=== PATIENT | female | born 1935 | race Caucasian/White ===

== ENCOUNTER → 2017-03-03 | Outpatient (REF) | payer MEDICARE ==
[2017-03-03 11:49] LABS: MEAN CORPUSCULAR HEMOGLOBIN 31.1 pg (27.0-33.0); MEAN CORPUSCULAR HGB CONC 33.6 g/dl (32.0-36.5); MEAN CORPUSCULAR VOLUME 92.4 fl (80.0-96.0); RED CELL DISTRIBUTION WIDTH 12.8 % (11.5-14.5); WHITE BLOOD COUNT 7.5 K/mm3 (4.0-10.0)
[2017-03-03 12:08] LABS: ALBUMIN 4.2 GM/DL (3.2-5.2); ALBUMIN/GLOBULIN RATIO 1.31 (1.00-1.93); ALKALINE PHOSPHATASE 61 U/L (45-117); ALT/SGPT 21 U/L (12-78); ANION GAP 8 MEQ/L (8-16); AST/SGOT 21 U/L (15-37); BILIRUBIN,TOTAL 0.5 MG/DL (0.2-1.0); BLOOD UREA NITROGEN 12 MG/DL (7-18); CARBON DIOXIDE LEVEL 29 MEQ/L (21-32); CHLORIDE LEVEL 99 MEQ/L (98-107); GLOMERULAR FILTRATION RATE > 60.0 (>32); GLUCOSE, FASTING 97 MG/DL (83-110); POTASSIUM SERUM 3.8 MEQ/L (3.5-5.1); SODIUM LEVEL 136 MEQ/L (136-145); TOTAL PROTEIN 7.4 GM/DL (6.4-8.2)
== END ==
LOC: M SFHCPLAZ 08:52
PROVIDERS: ATTEND Physician Assistant
DX: I10 Essential (primary) hypertension (principal)

== ENCOUNTER 2017-06-21 08:34 | Emergency (ER) | payer MEDICARE ==
[~2017-06-21] VITALS: Ht 154.9 cm; Wt 60.0 kg
[2017-06-21] MEDS ORDERED: IBUP-1022 PO (09:16)
[2017-06-21] MEDS ORDERED: MULT1TAB10 PO (09:16)
[2017-06-21] MEDS ORDERED: CALC600T57 PO (09:16)
[2017-06-21] MEDS ORDERED: PRIL20CA9 PO (09:16)
[2017-06-21] MEDS ORDERED: OMEG100011 PO (09:16)
[2017-06-21] MEDS ORDERED: VENL37.52 PO (09:16)
[2017-06-21] MEDS ORDERED: INDA25TAB PO (09:16)
[2017-06-21] MEDS ORDERED: CEPH500T PO (09:16)
[2017-06-21] MEDS ORDERED: VITA100067 PO (09:16)
[2017-06-21] MEDS ORDERED: SYST1SOL OU (09:16)
[2017-06-21] MEDS ORDERED: VITATAB11 PO (09:16)
[2017-06-21] MEDS ORDERED: LOSA100T36 PO (09:16)
[2017-06-21] MEDS ORDERED: ZOCO20TA PO (09:16)
[2017-06-21 09:33] LABS: BASO # 0.2 K/mm3 (0.0-0.2); BASO % 0.9 % (0.0-1.0); EOS # 0.1 K/mm3 (0.0-0.50); EOS % 0.5 % (0.0-3.0); LARGE UNSTAINED CELL # 0.3 K/mm3 (0.0-0.4); LARGE UNSTAINED CELL % 1.5 % (0.0-4.0); LYMPH # 1.1 K/mm3 (1.5-4.5); LYMPH % 4.1 % (24.0-44.0); MEAN CORPUSCULAR HEMOGLOBIN 30.6 pg (27.0-33.0); MEAN CORPUSCULAR HGB CONC 34.1 g/dl (32.0-36.5); MEAN CORPUSCULAR VOLUME 89.7 fl (80.0-96.0); MONO # 4.5 K/mm3 (0.0-0.8); MONO % 22.9 % (0.0-5.0); NEUTROPHILS # 13.8 K/mm3 (1.8-7.7); NEUTROPHILS % 70.2 % (36.0-66.0); PLATELET COUNT, AUTOMATED 231 k/mm3 (150-450); WHITE BLOOD COUNT 19.7 K/mm3 (4.0-10.0)
[2017-06-21] MEDS ORDERED: NS 1,000 ML IV ONE (09:45)
[2017-06-21] MEDS ORDERED: ACETAMINOPHEN 325 MG TAB PO ONE (09:45)
--- NOTE | 2017-06-21 09:46 | REP ---
Chest two views HISTORY: Weakness Comparison: 12/08/2011 Increased density is present in the right lower lobe consistent with atelectasis or infiltrate. The left lung is clear. The heart is normal in size. The pulmonary vasculature is normal in appearance. Degenerative change is present in the thoracic spine. IMPRESSION: Right lower lobe atelectasis or infiltrate. Signed by Clarence Cabezas MD 06/21/2017 09:37 A
[2017-06-21 09:51] LABS: ALBUMIN 3.7 GM/DL (3.2-5.2); ALBUMIN/GLOBULIN RATIO 0.84 (1.00-1.93); ALKALINE PHOSPHATASE 71 U/L (45-117); ALT/SGPT 18 U/L (12-78); ANION GAP 11 MEQ/L (8-16); AST/SGOT 19 U/L (15-37); BILIRUBIN,DIRECT 0.2 MG/DL (0.0-0.2); BLOOD UREA NITROGEN 20 MG/DL (7-18); CALCIUM LEVEL 9.2 MG/DL (8.8-10.2); CARBON DIOXIDE LEVEL 26 MEQ/L (21-32); CHLORIDE LEVEL 94 MEQ/L (98-107); CREATININE FOR GFR 0.83 MG/DL (0.55-1.02); GLOMERULAR FILTRATION RATE > 60.0 (>32); GLUCOSE, FASTING 106 MG/DL (83-110); POTASSIUM SERUM 3.3 MEQ/L (3.5-5.1); SODIUM LEVEL 131 MEQ/L (136-145); TOTAL PROTEIN 8.1 GM/DL (6.4-8.2)
[2017-06-21] MEDS ORDERED: LevoFLOXacin IV 500 MG in APPROPRIATE DILUENT 1 EA IV ONE (10:00)
[2017-06-21] MEDS ORDERED: IPRATROPIUM 0.5MG/ALBUTEROL 2.5MG INH SOL UD 3ML (DUONEB)(J7620) NEB ONE (10:45)
[2017-06-21] MEDS ORDERED: ALBUTEROL 90 MCG/ACT 8GM HFA INHALER INH ONE (13:15)
--- NOTE | 2017-06-21 13:15 | ECGEPIP ---
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
[2017-06-21] MEDS ORDERED: LEVA1TAB2 PO (13:22)
[2017-06-21 14:01] VITALS: BP 113/55
== END 2017-06-21 14:04 | disposition home or self-care (01) ==
LOC: M ED 08:34
DX: J18.9 Pneumonia, unspecified organism (principal); R53.83 Other fatigue; R06.02 Shortness of breath; I10 Essential (primary) hypertension; E78.00 Pure hypercholesterolemia, unspecified; K21.9 Gastro-esophageal reflux disease without esophagitis; Z88.8 Allergy status to other drugs, medicaments and biological substances; Z79.899 Other long term (current) drug therapy
CPT/HCPCS: 71020; 80048; 80076; 81001; 83605; 84443; 85025; 87040; 87086; 87804; 93005; 93041; 94640; 94760; 96361; 96374; 99285; J1956; P9612

== ENCOUNTER → 2017-07-07 | Outpatient (CLI) | payer MEDICARE ==
[~2017-07-07] MED LIST: CALC600T57 PO; CEPH500T PO; IBUP-1022 PO; INDA25TAB PO; LEVA1TAB2 PO; LOSA100T36 PO; MULT1TAB10 PO; NORCOTAB PO; OMEG100011 PO; PRIL20CA9 PO; SYST1SOL OU; VENL37.52 PO; VITA100067 PO; VITATAB11 PO; ZOCO20TA PO
--- NOTE | 2017-07-07 15:02 | REP ---
Clinical: Lumbar pneumonia. Technique: Technique: PA and lateral. Comparison: 06/21/2017. Findings: Mediastinum and cardiac silhouette are within normal limits. Lung bynum demonstrate chronic changes and the previously identified right lower lobe infiltrate has resolved. No acute consolidation, effusion, or pneumothorax. Skeletal structures stable. Impression: Chronic stable changes. Previously noted right lower lobe infiltrate resolved. Signed by Kb Das MD 07/07/2017 02:54 P
== END ==
LOC: M ADAMS 14:25
PROVIDERS: ATTEND Family Medicine
DX: J18.1 Lobar pneumonia, unspecified organism (principal)

== ENCOUNTER → 2017-07-07 | Outpatient (REF) | payer MEDICARE ==
[2017-07-07 20:54] LABS: MEAN CORPUSCULAR HEMOGLOBIN 30.4 pg (27.0-33.0); MEAN CORPUSCULAR HGB CONC 33.2 g/dl (32.0-36.5); MEAN CORPUSCULAR VOLUME 91.6 fl (80.0-96.0); RED CELL DISTRIBUTION WIDTH 13.3 % (11.5-14.5)
[2017-07-07 20:57] LABS: ANION GAP 5 MEQ/L (8-16); BLOOD UREA NITROGEN 13 MG/DL (7-18); CALCIUM LEVEL 9.3 MG/DL (8.8-10.2); CARBON DIOXIDE LEVEL 32 MEQ/L (21-32); CHLORIDE LEVEL 96 MEQ/L (98-107); CREATININE FOR GFR 0.68 MG/DL (0.55-1.02); GLOMERULAR FILTRATION RATE > 60.0 (>32); GLUCOSE, FASTING 100 MG/DL (83-110); SODIUM LEVEL 133 MEQ/L (136-145)
== END ==
LOC: M SFHCADAM 14:22
PROVIDERS: ATTEND Family Medicine
DX: J18.1 Lobar pneumonia, unspecified organism (principal)

== ENCOUNTER 2017-07-26 13:23 | Emergency (ER) | payer MEDICARE ==
[~2017-07-26] VITALS: Ht 154.9 cm; Wt 60.9 kg
[~2017-07-26 13:23] MED LIST changes: -NORCOTAB PO
--- NOTE | 2017-07-26 14:08 | REP ---
LEFT WRIST: Four views of the left wrist are performed. There is a nondisplaced fracture of the distal radius with mild dorsal angulation. There is a fracture of the ulnar styloid process. There is moderate diffuse narrowing at the radiocarpal joint with mild chondrocalcinosis. There are degenerative changes in the lateral carpometacarpal region. IMPRESSION: Nondisplaced fractures, distal radius and ulna, with mild dorsal angulation at the radial fracture site. Signed by Drake Oliva MD 07/26/2017 05:07 P
[2017-07-26] MEDS ORDERED: NORCOTAB PO (15:25)
[2017-07-26 15:47] VITALS: BP 173/74
== END 2017-07-26 15:48 | disposition home or self-care (01) ==
LOC: M ED 14:25
DX: S52.502A Unspecified fracture of the lower end of left radius, initial encounter for closed fracture (principal); S52.602A Unspecified fracture of lower end of left ulna, initial encounter for closed fracture; W19.XXXA Unspecified fall, initial encounter; Y92.019 Unspecified place in single-family (private) house as the place of occurrence of the external cause; Y93.89 Activity, other specified; Y99.8 Other external cause status; I10 Essential (primary) hypertension; Z79.899 Other long term (current) drug therapy

== ENCOUNTER → 2017-09-11 | Outpatient (CLI) | payer MEDICARE ==
[~2017-09-11] MED LIST changes: +NORCOTAB PO
--- NOTE | 2017-09-11 15:23 | REPMRS ---
Patient History The patient states she has not had a clinical breast exam in over a year. Patient is postmenopausal and is of Ashkenazi [place] descent. Family history of breast cancer in 3 maternal aunts at age 50 or over and breast cancer in maternal cousin at age 50 or over. Cyst aspiration of the left breast, July 2016. 2 benign cyst aspirations of the left breast. Digital Woman Screen Mammo: September 11, 2017 - Exam #: [id number] Bilateral CC and MLO view(s) were taken. Technologist: Timothy Snyderologist Prior study comparison: September 09, 2016, digital woman screen mammo performed at [facility]. September 08, 2015, digital woman screen mammo performed at [facility]. FINDINGS: There are scattered fibroglandular densities. There is a fairly symmetric fibroglandular pattern in both breasts. There has been no interval development of masses, areas of architectural distortion or clusters of microcalcifications typical of malignancy. ASSESSMENT: BI-RADS/ACR category 2 mammogram. Benign finding(s). Recommendation Routine screening mammogram of both breasts in 1 year (for women over age 40). This mammogram was interpreted with the aid of an FDA-approved computer-aided dectection system. Electronically Signed By: Drake Oliva MD 09/11/17 1990
== END ==
LOC: M WHC 14:08
PROVIDERS: ATTEND Physician Assistant
DX: Z12.31 Encounter for screening mammogram for malignant neoplasm of breast (principal)

== ENCOUNTER → 2018-05-01 | Outpatient (CLI) | payer MEDICARE | LOC: M RAD 13:15 | DX: N60.02 Solitary cyst of left breast (principal) | CPT/HCPCS: 76642 ==

== ENCOUNTER → 2018-08-15 | Outpatient (REF) | payer MEDICARE ==
[2018-08-15 12:23] LABS: HEMATOCRIT 38.5 % (36.0-47.0); HEMOGLOBIN 12.8 g/dl (12.0-15.5); MEAN CORPUSCULAR HEMOGLOBIN 29.7 pg (27.0-33.0); MEAN CORPUSCULAR HGB CONC 33.2 g/dl (32.0-36.5); MEAN CORPUSCULAR VOLUME 89.3 fl (80.0-96.0); PLATELET COUNT, AUTOMATED 236 10^3/uL (150-450); RED BLOOD COUNT 4.31 10^6/uL (4.00-5.40); RED CELL DISTRIBUTION WIDTH 13.2 % (11.5-14.5); WHITE BLOOD COUNT 7.6 10^3/uL (4.0-10.0)
[2018-08-15 12:53] LABS: ALBUMIN 4.3 GM/DL (3.2-5.2); ALBUMIN/GLOBULIN RATIO 1.34 (1.00-1.93); ALKALINE PHOSPHATASE 61 U/L (45-117); ALT/SGPT 20 U/L (12-78); ANION GAP 11 MEQ/L (8-16); AST/SGOT 21 U/L (7-37); BILIRUBIN,TOTAL 0.6 MG/DL (0.2-1.0); BLOOD UREA NITROGEN 14 MG/DL (7-18); CALCIUM LEVEL 9.1 MG/DL (8.8-10.2); CARBON DIOXIDE LEVEL 27 MEQ/L (21-32); CHLORIDE LEVEL 98 MEQ/L (98-107); CHOLESTEROL LEVEL 167 MG/DL (<200); CHOLESTEROL RISK RATIO 2.226 (<5); CREATININE FOR GFR 0.71 MG/DL (0.55-1.30); GLOMERULAR FILTRATION RATE > 60.0 (>32); GLUCOSE, FASTING 87 MG/DL (70-100); HDL CHOLESTEROL 75 MG/DL (>40); LDL CHOLESTEROL 76 MG/DL (<100); NON-HDL-C 92 MG/DL; POTASSIUM SERUM 3.9 MEQ/L (3.5-5.1); SODIUM LEVEL 136 MEQ/L (136-145); TOTAL PROTEIN 7.5 GM/DL (6.4-8.2); TRIGLYCERIDES LEVEL 78 MG/DL (<150)
== END ==
LOC: M SFHCPLAZ 10:09
DX: F32.9 Major depressive disorder, single episode, unspecified (principal); I11.9 Hypertensive heart disease without heart failure
CPT/HCPCS: 80053

== ENCOUNTER → 2018-09-26 | Outpatient (CLI) | payer MEDICARE | LOC: M WHC 08:48 | DX: Z12.31 Encounter for screening mammogram for malignant neoplasm of breast (principal); Z78.0 Asymptomatic menopausal state | CPT/HCPCS: 77067 ==

== ENCOUNTER 2018-11-25 17:27 | Inpatient (IN) | payer MEDICARE ==
[~2018-11-25] VITALS: Ht 152.4 cm; Wt 59.0 kg
[~2018-11-25 17:27] MED LIST changes: -AUGM875T28 PO; -OMEP20CA3 PO
[2018-11-25] MEDS ORDERED: NS 1,000 ML IV ONE (18:15)
[2018-11-25 18:21] LABS: HEMATOCRIT 34.2 % (36.0-47.0); HEMOGLOBIN 11.5 g/dl (12.0-15.5); MEAN CORPUSCULAR HEMOGLOBIN 30.1 pg (27.0-33.0); MEAN CORPUSCULAR HGB CONC 33.6 g/dl (32.0-36.5); MEAN CORPUSCULAR VOLUME 89.5 fl (80.0-96.0); PLATELET COUNT, AUTOMATED 207 10^3/uL (150-450); RED BLOOD COUNT 3.82 10^6/uL (4.00-5.40); WHITE BLOOD COUNT 23.2 10^3/uL (4.0-10.0)
[2018-11-25] MEDS ORDERED: POTASSIUM CHLORIDE 10 MEQ SR TABLET PO ONE (18:45)
--- NOTE | 2018-11-25 18:58 | REP ---
Clinical: Cough and leukocytosis. Technique: PA and lateral. Comparison: 07/07/2017. Findings: The mediastinum and cardiac silhouette are stable. Lung bynum demonstrate chronic interstitial changes without acute consolidation, effusion, or pneumothorax. Skeletal structures demonstrate age-related osteopenia and degenerative changes. Impression: Chronic interstitial changes. No obvious acute cardiopulmonary process. Electronically Signed by Kb Das MD 11/25/2018 06:50 P
[2018-11-25 19:02] LABS: BASOPHILS 1 % (0-4); LYMPHOCYTES 5 % (16-52); MONOCYTES 36 % (0-8); NEUTROPHILS 58 % (35-75); PLATELET ESTIMATE NORMAL (NORMAL)
[2018-11-25] MEDS ORDERED: ISOVUE-370 76% 100ML VIAL (Q9967) As Ordered ONE (19:04)
--- NOTE | 2018-11-25 19:48 | REP ---
Clinical: Cough and leukocytosis. Suspect endocarditis Technique: Axial contrast enhanced images from the thoracic inlet to the upper abdomen using 100 ml Isovue 370 intravenous contrast material with coronal and sagittal re-formations. Findings: Satisfactory enhancement of the pulmonary vasculature is achieved and no filling defects are identified to suggest pulmonary embolus. Thoracic aorta is normal caliber without aneurysm or dissection. Heart and pericardium are normal. There is a posterior right lower lobe mass / consolidation measuring 4.4 x 4.2 x 3.2 cm highly suspicious for malignancy with surrounding areas of ground-glass opacity. Trace bibasilar atelectasis also noted. No pleural effusion. No pneumothorax. Tracheobronchial tree appears patent. Mild right hilar and moderate subcarinal adenopathy is appreciated. Surrounding musculoskeletal structures are intact without focal osseous abnormality. Impression: 1. No evidence for pulmonary embolus. 2. A 4.4 x 4.2 x 3.2 cm posterior right lower lobe mass / consolidation highly concerning for malignancy requires follow-up and consultation. 3. Normal appearance of the heart and pericardium. Mild atherosclerotic changes to the thoracic aorta without aneurysm or dissection. Electronically Signed by Kb Das MD 11/25/2018 07:40 P
--- NOTE | 2018-11-25 19:56 | REP ---
Clinical: Leukocytosis and fatigue Technique: Axial contrast enhanced images from the lung bases to the pubic symphysis using 100 ml Isovue 370 intravenous contrast material with coronal and sagittal re-formations. Comparison: 05/09/2013. Findings: Posterior right lower lobe lung mass / consolidation with surrounding ground-glass opacity along with trace bibasilar atelectasis. Liver demonstrates heterogeneous parenchymal enhancement which may reflect underlying hepatocellular disease. Innumerable hepatic hypodensities which were identified on 2013 but have increased in size including medial left lower lobe hypodensity now measuring 3.7 cm and previously measuring 2.0 cm likely representing chronic cysts. Spleen, pancreas, gallbladder, bilateral adrenal glands and kidneys are normal. The enteric system is without obstruction or obvious acute inflammatory process. Moderate fecal stasis noted throughout the colon along with diffuse colonic and predominately sigmoid diverticulosis. Pelvis demonstrates normal bladder and retroflexed uterus with a 1.3 cm calcified fibroid unchanged from 2013. No ascites. No obvious intraperitoneal or retroperitoneal adenopathy. Abdominal aorta and vasculature without aneurysm or dissection. Musculoskeletal structures demonstrate age-related degenerative changes and chronic scoliosis. Impression: 1. Right lower lobe posterior lung mass / consolidation with surrounding ground-glass opacity requires followup and constipation. 2. Heterogeneous hepatic parenchymal enhancement may reflect underlying hepatocellular disease. Scattered hepatic hypodensities which are similar to prior examination but increased in size suggest cysts although subtle further pathology cannot be excluded based on current examination. 3. Colonic and predominant sigmoid diverticulosis without obvious acute diverticulitis. Moderate fecal stasis. 4. No ascites, obvious adenopathy or focal mass lesion. Electronically Signed by Kb Das MD 11/25/2018 07:48 P
[2018-11-25] MEDS ORDERED: cefTRIAXone SOD 1 GM in D5W MINI-BAG PLUS 50 ML IV ONE (21:15)
[2018-11-25] MEDS ORDERED: OMEP20CA3 PO (21:29)
[2018-11-25] MEDS: HEPARIN SOD (PORCINE) 5000 UNITS/ML VIAL SQ SCH (22:17)
[2018-11-25] MEDS: SIMVASTATIN 20 MG TAB PO SCH (22:17)
[2018-11-25] MEDS: LOSARTAN 50 MG TAB PO SCH (22:17)
--- NOTE | 2018-11-25 22:27 | HPEPDOC ---
[facility] Medical History & Physical Date of Admission Nov 25, 2018 Primary Care Physician: Richard Felipe MD Other Provider Dictating/admitting: Wade Baeza M.D. Attending Physician: Otto Reyes MD History and Physical CHIEF COMPLAINT: Cough x 3 days HISTORY OF PRESENT ILLNESS: Patient is an 83-year-old woman with hypertension, hyperlipidemia, migraine, arthritis, depression. She reports being in her usual state of health until about 3 days ago when she started having cough. She says is nonproductive, not associated with shortness of breath. No hemoptysis. No as sociated chest pain, no palpitations, no nausea no vomiting, no fever or chills. No weight loss, no night sweats. No recent sick contacts. No change in her bowel or urinary habits. Patient sought medical attention at an urgent care due to unresolving symptoms, she was asked to seek further evaluation due to markedly elevated white count. Patient was evaluated in our ER with CT of the chest. Chest x-ray, CT abdomen and pelvis, all were consistent with pneumonia and likely posterior lower lobe lung mass. Medicine called to admit patient. PAST MEDICAL HISTORY: Per HPI PAST SURGICAL HISTORY: 1. Tonsillectomy. 2. Colonoscopy 2. 3. Breast cyst aspiration. 4. Right knee arthroplasty. SOCIAL HISTORY: Denies smoking, alcohol or illicit drug use. FAMILY HISTORY: Father: from occupational lung disease at age 32 Mother: age 91, was diagnosed with CHF, rheumatoid arthritis, liver disease. Siblings: One brother, 2 sisters. One brother has liver disease. Maternal cousin with breast cancer. Children: 2 sons ALLERGIES: Please see below. REVIEW OF SYSTEMS: No hemoptysis. Occasional shortness of breath and cough. No chest pain or palpitations. No fever, no chills, no nausea no vomiting, no weight loss, no night sweats. No recent sick contacts. No change in bowel or urinary habits. All other systems reviewed, negative. 12 point system review was done. HOME MEDICATIONS: Please see below. PHYSICAL EXAMINATION: VITAL SIGNS: Temperature 97.1, pulse 89, respiratory rate 17, blood pressure 116/67, pulse oximetry 97% on room air. GENERAL APPEARANCE: Elderly woman, lying calmly in bed, not in any apparent distress. She is not pale, anicteric and afebrile HEENT: Atraumatic. Neck: Supple. LUNGS: Clear to auscultation bilaterally. CARDIOVASCULAR: S1 and 2 heard, no murmurs, rubs or gallops. ABDOMEN: Obese, soft, not tender, not distended. Bowel sounds normoactive. MUSCULOSKELETAL: Apparently within normal limits. EXTREMITIES: No pedal edema, 2+ bilateral pedal pulses noted. NEUROLOGICAL: Awake, alert, oriented 3. PSYCHIATRIC: Normal affect LABORATORY DATA: See below. IMAGING: -Chest x-ray PA/lateral: Chronic interstitial changes. No obvious acute cardiopulmonary process. -CT angiogram chest: No evidence of pulmonary embolus. A 4.4 x 4.2 x 3.2 cm posterior right lower lobe mass/consolidation, highly concerning for malignancy. Normal appearance of the heart and pericardium. Mild atherosclerotic changes to the thoracic aorta without aneurysms or dissection. -CT abdomen/pelvis with IV contrast: Right lower lobe posterior lung mass/consolidation with surrounding groundglass opacity. Heterogeneous hepatic parenchymal enhancement may reflect underlying cellular disease. Scattered hepatic hypodensities which are similar to prior examination with increased in size suggest cysts although subtle further pathology cannot be excluded based on current exam. Colonic and predominant sigmoid diverticulosis without obvious acute diverticulitis, moderate fecal stasis. No ascites, obvious adenopathy or focal mass lesion. EKG: Normal sinus rhythm, no acute ST or T-wave changes seen. MICROBIOLOGY: Please see below. ASSESSMENT: 83-year-old woman with above-mentioned comorbid history comes in with cough unresolving exam generally unremarkable. Chest clear to auscultation. Labs with elevated white count, monocyte predominant CT and chest x-rays suggestive of lung mass and pneumonia. DIAGNOSES: 1. Pneumonia (r/o post obstructive pneumonia. On account of mass seen on CTA chest and chest x-rays) 2. Lung mass. 3. Leukocytosis . PLAN: 1. I will admit patient to the medical floors under care of Dr. Reyes 2. Patient will continue IV antibiotics for pneumonia with ceftriaxone and Zithromax. Please follow blood cultures temperature trends CBC in the morning. 3. Primary consult placed to Dr. Nam. Patient may also need hematology oncology services likely with this admission or to follow as outpatient. 4. Leukocytosis, likely leukemoid in the setting of malignancy. 5. Lung mass may require biopsy. With this admission. Follow with Dr. Nam. 6. I will resume outpatient medications as soon as reconciled. 7. DVT prophylaxis with subcutaneous heparin 5000 international units every 12 hourly. 8. GI prophylaxis. Pantoprazole. 9. Further management to be per patient's clinical course. Vital Signs Vital Signs Date Time Temp Pulse Resp B/P (MAP) Pulse Ox O2 Delivery O2 Flow Rate FiO2 11/25/18 17:51 11/25/18 17:28 97.1 89 17 97 Laboratory Data Labs 24H Laboratory Tests 2 11/25/18 18:13: White Blood Count 23.2H, Red Blood Count 3.82L, Hemoglobin 11.5L, Hematocrit 34.2L, Mean Corpuscular Volume 89.5, Mean Corpuscular Hemoglobin 30.1, Mean Corpuscular Hemoglobin Concent 33.6, Red Cell Distribution Width 13.4, Platelet Count 207, Monocytes # (Auto) , Nucleated Red Blood Cells % (auto) 0.0, Neutrophils 58, Lymphocytes (Manual) 5L, Monocytes (Manual) 36H, Basophils (Manual) 1, Platelet Estimate NORMAL, C-Reactive Protein, Quantitative 17.00H 11/25/18 19:02: Differential Slide Review Report, Peripheral Blood Smear Path Consult PERIPHERAL SMEAR, Lactic Acid Level 1.0 11/25/18 20:27: Urine Color AIRAM, Urine Appearance HAZY, Urine pH 6.0, Urine Specific [place] 1.031, Urine Protein 1+H, Urine Glucose (UA) NEGATIVE, Urine Ketones NEGATIVE, Urine Blood NEGATIVE, Urine Nitrite NEGATIVE, Urine Bilirubin NEGATIVE, Urine Urobilinogen 0.2, Urine Leukocyte Esterase TRACEH, Urine WBC (Auto) 3, Urine RBC (Auto) 6H, Urine Hyaline Casts (Auto) 0, Urine Bacteria (Auto) NEGATIVE, Urine Squamous Epithelial Cells 1, Urine Mucus (Auto) SMALL, Urine Sperm (Auto) CBC/BMP Laboratory Tests 11/25/18 18:13 Red Blood Count 3.82 L, Mean Corpuscular Volume 89.5, Mean Corpuscular Hemoglobin 30.1, Mean Corpuscular Hemoglobin Concent 33.6, Red Cell Distribution Width 13.4, Monocytes # (Auto) Microbiology Microbiology 11/25/18 Blood Culture, Received Pending 11/25/18 Blood Culture, Received Pending 11/25/18 Blood Culture, Received Pending 11/25/18 Respiratory Virus Panel (PCR) (GABBY) - Final, Complete 11/25/18 Urine Culture, Received Pending Home Medications Scheduled B1/B2/B3/B5/B6 (Vitamin B Complex) 1 Tab Tab, 1 TAB PO DAILY Indapamide (Indapamide) 2.5 Mg Tab, 2.5 MG PO DAILY Losartan Potassium (Losartan Potassium) 100 Mg Tab, 100 MG PO QHS Multivitamins (Multivitamin Adults) 1 Tab Tab, 1 TAB PO DAILY Omeprazole (Omeprazole) 20 Mg Cap, 20 MG PO DAILY Simvastatin (Zocor) 20 Mg Tab, 20 MG PO QHS Venlafaxine HCl (Venlafaxine HCl ER) 37.5 Mg Cap, 37.5 MG PO DAILY Vitamin D (Vitamin D) 1,000 Unit Cap, 1,000 UNIT PO DAILY Scheduled PRN Ibuprofen (Ibuprofen) 600 Mg Tab, 600 MG PO Q6H PRN for PAIN Polyethylene Glycol (Systane 0.4-0.3 %) 15 Ml Divina, 1 DROP OU PRN PRN for DRY EYES Allergies Coded Allergies: JERO Inhibitors (Unverified Adverse Reaction, Intermediate, COUGH, 02/04/13) WADE BAEZA MD Nov 25, 2018 22:00
[2018-11-25] MEDS ORDERED: AZITHROMYCIN INJ 500 MG, VIAL MATE ADAPTER 1 EACH in D5W 250 ML IV ONE (22:30)
[2018-11-26 04:10] VITALS: BP 124/78
[2018-11-26 06:15] LABS: HEMATOCRIT 32.1 % (36.0-47.0); HEMOGLOBIN 10.9 g/dl (12.0-15.5); MEAN CORPUSCULAR HEMOGLOBIN 30.4 pg (27.0-33.0); MEAN CORPUSCULAR VOLUME 89.7 fl (80.0-96.0); PLATELET COUNT, AUTOMATED 179 10^3/uL (150-450); RED BLOOD COUNT 3.58 10^6/uL (4.00-5.40); WHITE BLOOD COUNT 17.1 10^3/uL (4.0-10.0)
[2018-11-26 06:31] LABS: BLOOD UREA NITROGEN 18 MG/DL (7-18); CALCIUM LEVEL 8.7 MG/DL (8.8-10.2); CARBON DIOXIDE LEVEL 26 MEQ/L (21-32); CHLORIDE LEVEL 98 MEQ/L (98-107); GLOMERULAR FILTRATION RATE > 60.0 (>32); GLUCOSE, FASTING 95 MG/DL (70-100); POTASSIUM SERUM 3.2 MEQ/L (3.5-5.1); SODIUM LEVEL 133 MEQ/L (136-145)
--- NOTE | 2018-11-26 08:58 | IPNPDOC ---
Subjective Date Seen The patient was seen on 11/26/18. Subjective Chief Complaint/HPI cough, elevated WBC, pneumonia Constitutional: Reports: Weakness; Denies: Chills, Fever, Night Sweats Skin: Denies: Rash, Lesions, Breakdown Pulmonary: Denies: Dyspnea, Cough Cardiovascular: Denies: Chest Pain, Palpitations, Orthopnea, Paroxysmal Noc. Dyspnea, Lt Headedness Gastrointestinal: Denies: Nausea, Vomiting, Abdominal Pain, Diarrhea, Constipation Genitourinary: Denies: Dysuria, Frequency, Incontinence, Retention Psych: Reports: Mood Normal; Denies: Depression, Memory Issues Objective Physical Examination General Exam: Positive: Alert, No Acute Distress ENT Exam: Positive: Atraumatic, Mucous membr. moist/pink, Pharynx Normal Chest Exam: Positive: Diminished (RLL) Abdomen Exam: Positive: Normal bowel sounds, Soft; Negative: Tenderness, Hepatospenomegaly Extremity Exam: Negative: Edema Skin Exam: Positive: Nl turgor and temperature; Negative: Rash, Breakdown Psych Exam: Positive: Mental status NL, Mood NL, Oriented x 3 Assessment /Plan Problems (1) Pneumonia Status: Acute Problem Text: Currently on Azithromycin and ceftriaxone. WBC improved to 17,000. Patient states slightly improved energy. (2) Lung mass Status: Acute Problem Specific Plan: Consult Specialist (Pulmonology) Problem Text: patient aware of findings. Pulmonology consulted. (3) Leukocytosis Status: Acute (4) Hypokalemia Status: Acute Problem Text: K: 3.2. replace potassium today. (5) HTN (hypertension) Status: Chronic Response to Treatment: Stable (6) Hyponatremia Status: Acute Problem Text: NA level 130. changed diet to regular. monitor. Plan/VTE VTE Prophylaxis Ordered?: Yes VS, I&O, 24H, Langbonsanjay Vital Signs/I&O Vital Signs Date Time Temp Pulse Resp B/P (MAP) Pulse Ox O2 Delivery O2 Flow Rate FiO2 11/26/18 04:10 99.2 85 19 124/78 (93) 97 Room Air I&O- Last 24 Hours up to 6 AM 11/26/18 06:00 Intake Total 240 ml Balance 240 ml Laboratory Data 24H LABS Laboratory Tests 2 11/25/18 18:13: White Blood Count 23.2H, Red Blood Count 3.82L, Hemoglobin 11.5L, Hematocrit 34.2L, Mean Corpuscular Volume 89.5, Mean Corpuscular Hemoglobin 30.1, Mean Corpuscular Hemoglobin Concent 33.6, Red Cell Distribution Width 13.4, Platelet Count 207, Monocytes # (Auto) , Nucleated Red Blood Cells % (auto) 0.0, Neutrophils 58, Lymphocytes (Manual) 5L, Monocytes (Manual) 36H, Basophils (Manual) 1, Platelet Estimate NORMAL, C-Reactive Protein, Quantitative 17.00H 11/25/18 19:02: Differential Slide Review Report, Peripheral Blood Smear Path Consult PERIPHERAL SMEAR, Lactic Acid Level 1.0 11/25/18 20:27: Urine Color AIRAM, Urine Appearance HAZY, Urine pH 6.0, Urine Specific [place] 1.031, Urine Protein 1+H, Urine Glucose (UA) NEGATIVE, Urine Ketones NEGATIVE, Urine Blood NEGATIVE, Urine Nitrite NEGATIVE, Urine Bilirubin NEGATIVE, Urine Urobilinogen 0.2, Urine Leukocyte Esterase TRACEH, Urine WBC (Auto) 3, Urine RBC (Auto) 6H, Urine Hyaline Casts (Auto) 0, Urine Bacteria (Auto) NEGATIVE, Urine Squamous Epithelial Cells 1, Urine Mucus (Auto) SMALL, Urine Sperm (Auto) 11/26/18 05:36: Nucleated Red Blood Cells % (auto) 0.0, Anion Gap 9, Glomerular Filtration Rate > 60.0, Blood Urea Nitrogen 18, Creatinine 0.70, Sodium Level 133L, Potassium Level 3.2L, Chloride Level 98, Carbon Dioxide Level 26, Calcium Level 8.7L CBC/BMP Laboratory Tests 11/25/18 18:13 Red Blood Count 3.82 L, Mean Corpuscular Volume 89.5, Mean Corpuscular Hemoglobin 30.1, Mean Corpuscular Hemoglobin Concent 33.6, Red Cell Distribution Width 13.4, Monocytes # (Auto) 11/26/18 05:36 Red Blood Count 3.58 L, Mean Corpuscular Volume 89.7, Mean Corpuscular Hemoglobin 30.4, Mean Corpuscular Hemoglobin Concent 34.0, Red Cell Distribution Width 13.4, Calcium Level 8.7 L Microbiology Microbiology 11/25/18 Blood Culture, Received Pending 11/25/18 Blood Culture, Received Pending 11/25/18 Blood Culture, Received Pending 11/25/18 Respiratory Virus Panel (PCR) (GABBY) - Final, Complete 11/25/18 Urine Culture, Received Pending Bela Knight [facility] Nov 26, 2018 08:58
[2018-11-26] MEDS ORDERED: cefTRIAXone SOD 1 GM in D5W MINI-BAG PLUS 50 ML IV SCH (09:00)
[2018-11-26] MEDS ORDERED: AZITHROMYCIN 250 MG TAB PO SCH (09:00)
[2018-11-26] MEDS ORDERED: POTASSIUM CHLORIDE 10 MEQ SR TABLET PO ONE (09:15)
[2018-11-26] MEDS: HEPARIN SOD (PORCINE) 5000 UNITS/ML VIAL SQ SCH ×2 (09:39→21:22)
[2018-11-26] MEDS: PANTOPRAZOLE 40MG TAB (PROTONIX) PO SCH (09:39)
[2018-11-26] MEDS: INDAPAMIDE 1.25MG TABLET PO SCH (09:40)
[2018-11-26] MEDS: VENLAFAXINE **XR** 37.5 MG CAPSULE PO SCH (09:40)
[2018-11-26] MEDS: VITAMIN D 1,000 INTERNATIONAL UNITS TABLET PO SCH (09:40)
--- NOTE | 2018-11-26 11:48 | CR ---
DATE OF CONSULTATION: 11/26/2018 ATTENDING PHYSICIAN: Dr. Reyes REASON FOR CONSULTATION: Abnormal x-ray/CT scan. HISTORY OF PRESENT ILLNESS (HPI): Ms. Holland is a delightfully pleasant, 83-year-old female, who is a lifetime nonsmoker. She has some second-hand exposure from and family. No pets in the home. She says several weeks ago, she started with a cough. She said that it had progressed. She has had significant fevers, chills and sweats at home especially at night. She presented to an urgent care. She was found to have a markedly elevated white count and sent to the emergency room (ER) for evaluation. Chest x-ray did show abnormality in the right. CT scan was then performed, which showed a sizeable density in the posterior segment in the right lower lobe. There is associated ground-glass opacities with this. Of interest is that the angiogram portion of the study shows no distortion at all of the underlying vasculature passing through the area. This would much more favor an infiltrate of process as opposed to a mass. She denies any other significant past pulmonary history. No recent other infections. She lives by herself. No recent viral illness. She thinks her appetite has been good in the midst of this. ALLERGIES: Listed to ANGIOTENSIN-CONVERTING ENZYME (JERO) INHIBITORS: MEDICATIONS AT HOME: - iodipamide - losartan - omeprazole - simvastatin - venlafaxine - vitamin D replacement PAST MEDICAL HISTORY: Significant for hypertension, previous migraines, osteoarthritis, and underlying depression. SURGICAL HISTORY: She has had a tonsillectomy, colonoscopy, and benign breast cyst aspiration, and right knee arthroplasty. SOCIAL HISTORY: Lives by herself. She is . No smoking or alcohol. FAMILY HISTORY: Father from some type of lung disease in his 30s. Mother in her 90s of rheumatoid arthritis and congestive heart failure. One brother with liver disease. REVIEW OF SYSTEMS: As per the HPI, otherwise, constitutional is significant for her recent fever and chills. HEENT: Unremarkable for double or blurry vision. Pulmonary: As per HPI. Cardiac: Unremarkable for angina. Gastrointestinal (GI): Unremarkable for nausea or vomiting. Genitourinary (): Unremarkable for dysuria or urgency. Neurologic: Unremarkable for seizure or strokes. Endocrine: Unremarkable for diabetes or thyroid disease. Hematologic: Unremarkable for bruising or bleeding. Musculoskeletal: Unremarkable for any new arthralgias or myalgias. Allergic/Immunologic: Unremarkable. Psychiatric: Unremarkable. PHYSICAL EXAMINATION: Currently reveals a pleasant, well-nourished, well-developed female, appears her stated age. Heart rate 85 and regular. Respiratory rate 16-18 and unlabored. Current temperature 99.2. HEENT: Otherwise normocephalic, atraumatic. Pupils reactive. Neck: Supple. Trachea is in the midline. Mucous membranes of the nose and mouth are moist. Dentition in good repair. Airway is class II. Chest shows diminished, but symmetric expansion. There are crackles in the right mid lung zone especially with a faint area of egophony just below the scapular margin on the right. I do believe there is a pleural base rub. Left chest is fairly clear. Cardiac exam is regular with no gallop. Peripheral pulses are palpable. No edema. No murmur. Abdomen: Soft, nontender, with active bowel sounds. No convincing organomegaly or masses. Extremities: No cyanosis or clubbing. Neurologic: She is awake, alert and appropriate. Psychiatric exam: Normal mood and affect. Pulse oximetry 97% on room air. Laboratories show on presentation white blood cell count of 23.2, down to 17.1 today. Yesterday had 58% segmented neutrophils, 5 lymphs, no bands. No differential done today. Sodium 133, potassium 3.2, chloride 98, CO2 26, BUN 19, creatinine 0.7. Blood culture are negative. Respiratory viral panel unremarkable. Sputum culture pending. CT as outlined above shows no clot, but does show a sizeable area of about 4.2 cm the apical most portion of the posterior segment of the right lower lobe. As noted above in the HPI, it does not distort the vasculature at all, which would much favor an alveolar filling process as opposed to distinctive mass. IMPRESSION: Abnormal CT scan, pneumonia versus mass. RECOMMENDATIONS: At this point, given her presentation with fevers, chills, sweats and a pleural based rub with an elevated white count, I would much more favor this to be an infectious process. She is already feeling a little better on Rocephin and azithromycin which was started on admission. I had a long discussion with her in that regard. If this were truly infectious, then I would not favor CT-guided needle biopsy at this point. She is in agreement with that as well. For now, we continue her intravenous antimicrobials. We will repeat an x-ray in several days. If her white count comes down in the next several days, we can consider a CT scan sooner rather than later, but given her improvement, I would follow this then as an outpatient and I will follow her closely in that regard. She is in full agreement with that. Further recommendations will be made in the progress record as new information becomes available.
[2018-11-26 14:00] VITALS: BP 113/56
[2018-11-26] MEDS: LOSARTAN 50 MG TAB PO SCH (21:22)
[2018-11-26] MEDS: SIMVASTATIN 20 MG TAB PO SCH (21:22)
[2018-11-26 22:00] VITALS: BP 143/69
[2018-11-27 04:00] VITALS: BP 144/69
[2018-11-27 06:00] VITALS: BP 146/70
[2018-11-27 06:26] LABS: BASO % 0.1 % (0.0-1.0); EOS # 0.1 10^3/uL (0.0-0.50); EOS % 0.5 % (0.0-3.0); HEMATOCRIT 37.8 % (36.0-47.0); HEMOGLOBIN 12.8 g/dl (12.0-15.5); LYMPH % 10.5 % (24.0-44.0); MEAN CORPUSCULAR HEMOGLOBIN 30.2 pg (27.0-33.0); MEAN CORPUSCULAR HGB CONC 33.9 g/dl (32.0-36.5); MEAN CORPUSCULAR VOLUME 89.2 fl (80.0-96.0); MONO % 34.7 % (0.0-5.0); PLATELET COUNT, AUTOMATED 248 10^3/uL (150-450); RED BLOOD COUNT 4.24 10^6/uL (4.00-5.40); WHITE BLOOD COUNT 18.9 10^3/uL (4.0-10.0)
[2018-11-27 06:31] LABS: MONO # 6.5 10^3/uL (0.0-0.8)
[2018-11-27 06:50] LABS: BLOOD UREA NITROGEN 15 MG/DL (7-18); CALCIUM LEVEL 9.2 MG/DL (8.8-10.2); CARBON DIOXIDE LEVEL 26 MEQ/L (21-32); CHLORIDE LEVEL 97 MEQ/L (98-107); CREATININE FOR GFR 0.76 MG/DL (0.55-1.30); GLOMERULAR FILTRATION RATE > 60.0 (>32); GLUCOSE, FASTING 105 MG/DL (70-100); MAGNESIUM LEVEL 1.8 MG/DL (1.8-2.4); POTASSIUM SERUM 3.3 MEQ/L (3.5-5.1); SODIUM LEVEL 133 MEQ/L (136-145)
--- NOTE | 2018-11-27 08:22 | IPN ---
DATE OF SERVICE: 11/27/2018 Thelma was seen on [address]. I saw her with her son Danny at the bedside. She is feeling weak and tired. She does not have much of a cough. I reviewed the events of the hospitalization as well as her recent pulmonary consultation. At this point, the indications are that the right upper lobe abnormality is probably infectious, not malignant, but will need followup. PHYSICAL EXAMINATION: Vital signs stable. Afebrile. 146/70. Elderly, frail, resting comfortably, alert, conversant. HEENT: Unremarkable. No jugular venous distention. Lungs: Rhonchi right side. Heart: Regular rhythm. Abdomen: Soft, nontender. No peripheral edema. LABS: Potassium 3.3. White count 18.9. IMPRESSION: 1. Right upper lobe mass is suspected community acquired pneumonia. She is on Rocephin and Zithromax. I have increased her Rocephin to 2 grams daily. Continue Zithromax at 500 mg by mouth daily which is the pneumonia dose. Followup CT imaging will be planned as an outpatient. 2. Hypokalemia, supplementation potassium has been given. 3. Hypertension, blood pressure is under good control. 4. History of depression. Will continue on current regimen. 5. Leukocytosis probably reactive. 6. Hyponatremia, mild and probably to pulmonary process. I do not think this needs further workup. She is on a low dose thiazide but has sodium levels low enough to warrant changing this. I had a discussion with her son Danny. She may need some in home care upon discharge. She has been having increasing confusion as an outpatient and at one point, we were considering moving her out of her home into some other living arrangement. That might be necessary if she does not bounce back with pneumonia. I explained to the patient and her son Danny that it often takes a month to recovery from the fatigue especially with pneumonia. At a minimum, would need some in home care in the interim.
[2018-11-27] MEDS: cefTRIAXone SOD 2 GM in D5W MINI-BAG PLUS 50 ML IV SCH (08:58)
[2018-11-27 09:00] VITALS: BP 128/72
[2018-11-27] MEDS: HEPARIN SOD (PORCINE) 5000 UNITS/ML VIAL SQ SCH ×2 (09:03→22:19)
[2018-11-27] MEDS: AZITHROMYCIN 250 MG TAB PO SCH (10:31)
[2018-11-27] MEDS: PANTOPRAZOLE 40MG TAB (PROTONIX) PO SCH (10:31)
[2018-11-27] MEDS: VENLAFAXINE **XR** 37.5 MG CAPSULE PO SCH (10:32)
[2018-11-27] MEDS: VITAMIN D 1,000 INTERNATIONAL UNITS TABLET PO SCH (10:32)
[2018-11-27] MEDS: INDAPAMIDE 1.25MG TABLET PO SCH (10:33)
[2018-11-27] MEDS: POTASSIUM CHLORIDE 10 MEQ SR TABLET PO SCH ×2 (10:48→22:20)
[2018-11-27 11:00] VITALS: BP 128/72
[2018-11-27 14:00] VITALS: BP 120/68
--- NOTE | 2018-11-27 20:42 | ECGEPIP ---
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
[2018-11-27 22:00] VITALS: BP 113/56
[2018-11-27] MEDS: SIMVASTATIN 20 MG TAB PO SCH (22:19)
[2018-11-27] MEDS: LOSARTAN 50 MG TAB PO SCH (22:20)
[2018-11-28 06:00] VITALS: BP 116/56
[2018-11-28 06:59] LABS: BASO % 0.2 % (0.0-1.0); EOS # 0.1 10^3/uL (0.0-0.50); EOS % 0.7 % (0.0-3.0); HEMATOCRIT 33.2 % (36.0-47.0); HEMOGLOBIN 11.2 g/dl (12.0-15.5); LYMPH # 1.2 10^3/uL (1.5-4.5); LYMPH % 8.7 % (24.0-44.0); MEAN CORPUSCULAR HEMOGLOBIN 29.9 pg (27.0-33.0); MEAN CORPUSCULAR HGB CONC 33.7 g/dl (32.0-36.5); MEAN CORPUSCULAR VOLUME 88.8 fl (80.0-96.0); NEUTROPHILS # 7.3 10^3/uL (1.8-7.7); NEUTROPHILS % 55.4 % (36.0-66.0); PLATELET COUNT, AUTOMATED 242 10^3/uL (150-450); RED BLOOD COUNT 3.74 10^6/uL (4.00-5.40); WHITE BLOOD COUNT 13.2 10^3/uL (4.0-10.0)
[2018-11-28 07:15] LABS: BLOOD UREA NITROGEN 15 MG/DL (7-18); CALCIUM LEVEL 9.2 MG/DL (8.8-10.2); CARBON DIOXIDE LEVEL 26 MEQ/L (21-32); CHLORIDE LEVEL 98 MEQ/L (98-107); CREATININE FOR GFR 0.69 MG/DL (0.55-1.30); GLOMERULAR FILTRATION RATE > 60.0 (>32); GLUCOSE, FASTING 100 MG/DL (70-100); POTASSIUM SERUM 4.2 MEQ/L (3.5-5.1); SODIUM LEVEL 132 MEQ/L (136-145)
[2018-11-28 07:25] LABS: MONO # 4.5 10^3/uL (0.0-0.8)
[2018-11-28] MEDS: cefTRIAXone SOD 2 GM in D5W MINI-BAG PLUS 50 ML IV SCH (08:52)
[2018-11-28] MEDS: VITAMIN D 1,000 INTERNATIONAL UNITS TABLET PO SCH (08:53)
[2018-11-28] MEDS: HEPARIN SOD (PORCINE) 5000 UNITS/ML VIAL SQ SCH ×2 (08:53→21:56)
[2018-11-28] MEDS: POTASSIUM CHLORIDE 10 MEQ SR TABLET PO SCH ×2 (08:53→21:58)
[2018-11-28] MEDS: PANTOPRAZOLE 40MG TAB (PROTONIX) PO SCH (08:53)
[2018-11-28] MEDS: AZITHROMYCIN 250 MG TAB PO SCH (08:53)
[2018-11-28] MEDS: INDAPAMIDE 1.25MG TABLET PO SCH (08:53)
[2018-11-28] MEDS: VENLAFAXINE **XR** 37.5 MG CAPSULE PO SCH (08:53)
--- NOTE | 2018-11-28 09:45 | IPNPDOC ---
Subjective Date Seen The patient was seen on 11/28/18. Subjective Chief Complaint/HPI pneumonia Events since last encounter Continues to improve. Constitutional: Denies: Chills, Fever, Night Sweats Pulmonary: Denies: Dyspnea, Cough Cardiovascular: Denies: Chest Pain, Palpitations, Orthopnea, Paroxysmal Noc. Dyspnea, Lt Headedness Gastrointestinal: Denies: Nausea, Vomiting, Abdominal Pain, Diarrhea, Constipation Objective Physical Examination General Exam: Positive: Alert, No Acute Distress ENT Exam: Positive: Atraumatic, Mucous membr. moist/pink, Pharynx Normal Chest Exam: Positive: Diminished (RLL) Abdomen Exam: Positive: Normal bowel sounds, Soft; Negative: Tenderness, Hepatospenomegaly Extremity Exam: Negative: Edema Skin Exam: Positive: Nl turgor and temperature; Negative: Rash, Breakdown Psych Exam: Positive: Mental status NL, Mood NL, Oriented x 3 Assessment /Plan Problems (1) Pneumonia Status: Acute Problem Text: Currently on Azithromycin and ceftriaxone. WBC improved to 13,000. Patient states slightly improved energy. Plan on sending home on Augmentin per conversation with Pulmonology. F/u with pulmonology in [address] scan in 1 months (2) Lung mass Status: Acute Problem Specific Plan: Consult Specialist (Pulmonology) Problem Text: patient aware of findings. Pulmonology consulted. (3) Leukocytosis Status: Acute (4) Hypokalemia Status: Resolved Problem Text: 11/28/18: K 4.1 K: 3.2. replace potassium today. (5) HTN (hypertension) Status: Chronic Response to Treatment: Stable (6) Hyponatremia Status: Acute Problem Text: Most likely secondary to infectious process. no w/u indicated at this time. NA level 130. changed diet to regular. monitor. Plan/VTE VTE Prophylaxis Ordered?: Yes VS, I&O, 24H, Fishbone Vital Signs/I&O Vital Signs Date Time Temp Pulse Resp B/P (MAP) Pulse Ox O2 Delivery O2 Flow Rate FiO2 11/28/18 06:00 97.1 93 18 116/56 (76) 95 Room Air I&O- Last 24 Hours up to 6 AM 11/28/18 06:00 Intake Total 870 ml Balance 870 ml Laboratory Data 24H LABS Laboratory Tests 2 11/28/18 06:20: Immature Granulocyte % (Auto) 1.0, White Blood Count 13.2H, Red Blood Count 3.74L, Hemoglobin 11.2L, Hematocrit 33.2L, Mean Corpuscular Volume 88.8, Mean Corpuscular Hemoglobin 29.9, Mean Corpuscular Hemoglobin Concent 33.7, Red Cell Distribution Width 13.2, Platelet Count 242, Neutrophils (%) (Auto) 55.4, Lymphocytes (%) (Auto) 8.7L, Monocytes (%) (Auto) 34.0H, Eosinophils (%) (Auto) 0.7, Basophils (%) (Auto) 0.2, Neutrophils # (Auto) 7.3, Lymphocytes # (Auto) 1.2L, Monocytes # (Auto) 4.5H, Eosinophils # (Auto) 0.1, Basophils # (Auto) 0.0, Nucleated Red Blood Cells % (auto) 0.0, Anion Gap 8, Glomerular Filtration Rate > 60.0, Blood Urea Nitrogen 15, Creatinine 0.69, Sodium Level 132L, Potassium Level 4.2#, Chloride Level 98, Carbon Dioxide Level 26, Calcium Level 9.2 CBC/BMP Laboratory Tests 11/28/18 06:20 Red Blood Count 3.74 L, Mean Corpuscular Volume 88.8, Mean Corpuscular Hemoglobin 29.9, Mean Corpuscular Hemoglobin Concent 33.7, Red Cell Distribution Width 13.2, Neutrophils (%) (Auto) 55.4, Lymphocytes (%) (Auto) 8.7 L, Monocytes (%) (Auto) 34.0 H, Eosinophils (%) (Auto) 0.7, Basophils (%) (Auto) 0.2, Neutrophils # (Auto) 7.3, Lymphocytes # (Auto) 1.2 L, Monocytes # (Auto) 4.5 H, Eosinophils # (Auto) 0.1, Basophils # (Auto) 0.0, Calcium Level 9.2 Microbiology Microbiology 11/25/18 Blood Culture - Preliminary, Resulted No Growth after 48 hours. All Specime... 11/25/18 Blood Culture - Preliminary, Resulted No Growth after 48 hours. All Specime... 11/25/18 Blood Culture - Preliminary, Resulted No Growth after 48 hours. All Specime... 11/25/18 Respiratory Virus Panel (PCR) (GABBY) - Final, Complete 11/25/18 Urine Culture - Final, Complete Bela Knight [facility] Nov 28, 2018 09:45
[2018-11-28 14:00] VITALS: BP 124/57
[2018-11-28 21:57] VITALS: BP 129/76
[2018-11-28] MEDS: LOSARTAN 50 MG TAB PO SCH (21:57)
[2018-11-28] MEDS: SIMVASTATIN 20 MG TAB PO SCH (21:58)
[2018-11-28 22:00] VITALS: BP 130/60
[2018-11-29 06:00] VITALS: BP 118/59
[2018-11-29 06:59] LABS: BASO % 0.2 % (0.0-1.0); EOS # 0.1 10^3/uL (0.0-0.50); EOS % 1.1 % (0.0-3.0); HEMATOCRIT 33.2 % (36.0-47.0); HEMOGLOBIN 11.2 g/dl (12.0-15.5); LYMPH # 1.2 10^3/uL (1.5-4.5); LYMPH % 10.3 % (24.0-44.0); MEAN CORPUSCULAR HGB CONC 33.7 g/dl (32.0-36.5); MONO % 35.1 % (0.0-5.0); NEUTROPHILS % 52.2 % (36.0-66.0); PLATELET COUNT, AUTOMATED 281 10^3/uL (150-450); RED BLOOD COUNT 3.73 10^6/uL (4.00-5.40); WHITE BLOOD COUNT 11.5 10^3/uL (4.0-10.0)
[2018-11-29 07:18] LABS: BLOOD UREA NITROGEN 13 MG/DL (7-18); CALCIUM LEVEL 9.3 MG/DL (8.8-10.2); CARBON DIOXIDE LEVEL 28 MEQ/L (21-32); CHLORIDE LEVEL 98 MEQ/L (98-107); CREATININE FOR GFR 0.67 MG/DL (0.55-1.30); GLOMERULAR FILTRATION RATE > 60.0 (>32); GLUCOSE, FASTING 96 MG/DL (70-100); POTASSIUM SERUM 4.8 MEQ/L (3.5-5.1); SODIUM LEVEL 132 MEQ/L (136-145)
[2018-11-29] MEDS: VENLAFAXINE **XR** 37.5 MG CAPSULE PO SCH (09:00)
[2018-11-29] MEDS: AZITHROMYCIN 250 MG TAB PO SCH (09:00)
[2018-11-29] MEDS: PANTOPRAZOLE 40MG TAB (PROTONIX) PO SCH (09:00)
[2018-11-29] MEDS: VITAMIN D 1,000 INTERNATIONAL UNITS TABLET PO SCH (09:01)
[2018-11-29] MEDS: HEPARIN SOD (PORCINE) 5000 UNITS/ML VIAL SQ SCH (09:01)
[2018-11-29] MEDS: INDAPAMIDE 1.25MG TABLET PO SCH (09:02)
[2018-11-29] MEDS: POTASSIUM CHLORIDE 10 MEQ SR TABLET PO SCH (09:02)
[2018-11-29] MEDS: cefTRIAXone SOD 2 GM in D5W MINI-BAG PLUS 50 ML IV SCH (09:03)
[2018-11-29] MEDS ORDERED: AUGM875T28 PO (09:47)
--- NOTE | 2018-11-29 10:35 | DSES ---
DATE OF ADMISSION: 11/25/2018 DATE OF DISCHARGE: 11/29/2018 ATTENDING PHYSICIAN: Dr. Richard Felpie PRIMARY CARE PROVIDER: Dr. Richard Felipe HISTORY OF PRESENT ILLNESS: This is an 83-year-old female who presented to [facility] emergency department for complaints of a 3 day history of a cough. She sought medical attention at a local urgent care due to unresolving symptoms. Blood work was drawn and she was noted to have a markedly elevated white blood cell count and was advised to seek emergent treatment. In the emergency department, she had a CT of the chest and CT of the abdomen and pelvis. CT angio of the chest provided positive for a 4.4 x 4.2 x 3.2 cm posterior lower lobe mass versus consolidation. The patient was subsequently admitted to the inpatient service. HOSPITAL COURSE: The patient is status post consultation by Dr. Goyo Nam, pulmonology, for evaluation. It was determined to proceed with antibiotic treatment for presumed pneumonia. Repeat chest x-ray in 1 to [address] then a CT scan in approximately [address] Nam will see her in 1 month for followup to determine mass versus consolidation. The patient tolerated broad spectrum antibiotics, ceftriaxone with azithromycin, during her hospitalization. White blood cell count improved down to 11,000 today. Vital signs have remained stable. The patient has remained afebrile throughout her hospitalization. She is status post physical therapy (PT) evaluation and they have determined that the patient is safe to be discharged home with in home services so that she returns to her baseline. PHYSICAL EXAMINATION: Today, vital signs are stable. She is afebrile. HEENT: Neck is supple without lymphadenopathy or jugular venous distention (JVD). CARDIOVASCULAR: Heart rate and rhythm are regular. PULMONARY: Lungs are clear. ABDOMEN: Soft and nontender. Positive bowel sounds times all four quadrants. EXTREMITIES: Bilateral lower extremities are without any edema. NEUROLOGIC: The patient is alert and oriented times three. DISCHARGE DIAGNOSES: 1. Leukocytosis. 2. Pneumonia. 3. Questionable pulmonary mass. SECONDARY DIAGNOSES: 1. Hypertension. 2. Hyperlipidemia. 3. History of migraines. 4. Osteoarthritis. 5. Depression. PLAN: The patient will be discharged to home with home health services. She will be placed on Augmentin 875/125 one by mouth twice a day for 21 days. She will followup with her primary care provider within the next week and pulmonology in 30 days. MEDICATIONS: - vitamin B complex one tablet by mouth daily - ibuprofen 600 mg by mouth every 4 hours as needed for pain - indapamide 2.5 mg by mouth daily - losartan potassium 100 mg by mouth at night - multivitamin one tablet daily - omeprazole 20 mg daily - Systane eye drops one drop OU as needed for dry eyes - simvastatin 20 mg by mouth at night - venlafaxine 37.5 mg capsule by mouth daily - vitamin D 1000 International Units by mouth daily IMAGING: Completed during hospitalization included chest x-ray, CT angio and CT of the abdomen and pelvis, as stated in the history of present illness. CONSULTATIONS: Pulmonology with Dr. Goyo Nam edited: 11/30/2018 0725 heide BETANCUR
== END 2018-11-29 11:05 | disposition home health service (06) | DRG 194 ==
LOC: M ED 17:27 → M ED INP 21:28 → M MS5PR 11-26 04:30
PROVIDERS: ADMIT Family Medicine; ATTEND Family Medicine
DX: J18.9 Pneumonia, unspecified organism (principal); E87.1 Hypo-osmolality and hyponatremia; R91.8 Other nonspecific abnormal finding of lung field; I10 Essential (primary) hypertension; E78.5 Hyperlipidemia, unspecified; G43.909 Migraine, unspecified, not intractable, without status migrainosus; E87.6 Hypokalemia; M19.90 Unspecified osteoarthritis, unspecified site; D72.829 Elevated white blood cell count, unspecified; F32.9 Major depressive disorder, single episode, unspecified; Z79.899 Other long term (current) drug therapy; Z88.8 Allergy status to other drugs, medicaments and biological substances; Z77.22 Contact with and (suspected) exposure to environmental tobacco smoke (acute) (chronic)

== ENCOUNTER → 2018-11-25 | Outpatient (CLI) | payer MEDICARE ==
[~2018-11-25] MED LIST changes: +AUGM875T28 PO; -LOSA100T36 PO; +LOSA100T50 PO; +OMEP20CA3 PO
[2018-11-25 16:09] LABS: BASO % 0.1 % (0.0-1.0); EOS % 0.1 % (0.0-3.0); HEMATOCRIT 36.4 % (36.0-47.0); HEMOGLOBIN 12.2 g/dl (12.0-15.5); LYMPH # 1.2 10^3/uL (1.5-4.5); LYMPH % 5.3 % (24.0-44.0); MEAN CORPUSCULAR HEMOGLOBIN 30.7 pg (27.0-33.0); MEAN CORPUSCULAR HGB CONC 33.5 g/dl (32.0-36.5); MEAN CORPUSCULAR VOLUME 91.5 fl (80.0-96.0); NEUTROPHILS # 12.8 10^3/uL (1.8-7.7); NEUTROPHILS % 55.5 % (36.0-66.0); PLATELET COUNT, AUTOMATED 218 10^3/uL (150-450); RED BLOOD COUNT 3.98 10^6/uL (4.00-5.40)
[2018-11-25 16:11] LABS: MONO # 8.7 10^3/uL (0.0-0.8)
[2018-11-25 16:15] LABS: ALBUMIN 3.8 GM/DL (3.2-5.2); ALT/SGPT 18 U/L (12-78); BILIRUBIN,TOTAL 0.8 MG/DL (0.2-1.0); BLOOD UREA NITROGEN 20 MG/DL (7-18); CALCIUM LEVEL 9.1 MG/DL (8.8-10.2); CARBON DIOXIDE LEVEL 28 MEQ/L (21-32); CHLORIDE LEVEL 97 MEQ/L (98-107); CREATININE FOR GFR 0.79 MG/DL (0.55-1.30); FREE T4 1.32 NG/DL (0.76-1.46); GLOMERULAR FILTRATION RATE > 60.0 (>32); GLUCOSE, FASTING 108 MG/DL (70-100); POTASSIUM SERUM 3.3 MEQ/L (3.5-5.1); SODIUM LEVEL 134 MEQ/L (136-145); THYROID STIMULATING HORMONE 0.955 uIU/ML (0.358-3.740); TOTAL PROTEIN 7.4 GM/DL (6.4-8.2)
== END ==
LOC: M WUC 12:24
PROVIDERS: ATTEND Physician Assistant
DX: J06.9 Acute upper respiratory infection, unspecified (principal); R05 Cough

== ENCOUNTER → 2018-12-21 | Outpatient (CLI) | payer MEDICARE ==
[~2018-12-21] MED LIST changes: +AUGM875T28 PO; +OMEP20CA3 PO
--- NOTE | 2018-12-21 14:07 | REP ---
CT STUDY OF THE CHEST WITHOUT CONTRAST: This study is compared to that on 11/25/2018. The large oval inflammatory process of the right lobe located posteriorly shows almost complete involution. There is still extensive linear branching to the pleura with suggestion of some air bronchograms. The remaining chest study is unchanged. There are prominent brachiocephalic vessels and suggestion of some increase of soft tissue between the sternum and the vessels. However, on comparison studies of angiograms done of the chest, there appear to be prominent brachiocephalic vessels which could account for these findings. These structures are somewhat low for enlarged thyroid gland. On a limited study of the upper abdomen, there has been no significant change from the prior examination. Multiple lesions are noted in the liver, most consistent with cysts. IMPRESSION: The followup examination shows considerable resolution of the nodule and associated areas of atelectasis of the right lower lobe. The oval lesion most likely represented round atelectasis and possible pneumonia. Electronically Signed by Richard Lopez MD 12/21/2018 02:11 P
== END ==
LOC: M RAD 06:55
PROVIDERS: ATTEND Internal Medicine Pulmonary Disease
DX: R91.8 Other nonspecific abnormal finding of lung field (principal)

== ENCOUNTER 2019-02-13 07:57 | Emergency (ER) | payer MEDICARE ==
[~2019-02-13] VITALS: Ht 157.5 cm; Wt 56.8 kg
[~2019-02-13 07:57] MED LIST changes: +HYDR-3715 PO; -NORCOTAB PO
--- NOTE | 2019-02-13 09:05 | REP ---
PA and lateral chest: Comparisons are 02/01/2019 and the . There is chronic hyperinflation, unchanged. Lung bynum otherwise clear. Cardiac size is normal. The niko, mediastinum, skeletal structures are unchanged. There is scoliosis of the lumbar spine convex left, unchanged. Impression: Chronic hyperinflation. No acute cardiopulmonary findings. Electronically Signed by Drake Marie MD 02/13/2019 08:56 A
--- NOTE | 2019-02-13 09:16 | REP ---
CT Head without contrast HISTORY: Right hand numbness COMPARISON: 05/04/2014 Areas of decreased attenuation are present in the periventricular and subcortical white matter. This represents small-vessel ischemic disease. There is no intraparenchymal hemorrhage, acute infarct, mass or midline shift. The ventricular system and cortical sulci are dilated consistent with mild volume loss. There is no extra cerebral collection. There is no fracture. The visualized sinuses are clear. IMPRESSION: 1. Small vessel ischemic disease. 2. Mild volume loss. Electronically Signed by Clarence Cabezas MD 02/13/2019 09:07 A
[2019-02-13 09:22] LABS: BASO % 0.2 % (0.0-1.0); EOS # 0.1 10^3/uL (0.0-0.50); EOS % 1.2 % (0.0-3.0); HEMATOCRIT 37.2 % (36.0-47.0); HEMOGLOBIN 12.7 g/dl (12.0-15.5); LYMPH # 1.2 10^3/uL (1.5-4.5); LYMPH % 24.2 % (24.0-44.0); MEAN CORPUSCULAR HEMOGLOBIN 30.1 pg (27.0-33.0); MEAN CORPUSCULAR HGB CONC 34.1 g/dl (32.0-36.5); MEAN CORPUSCULAR VOLUME 88.2 fl (80.0-96.0); MONO # 1.3 10^3/uL (0.0-0.8); MONO % 25.1 % (0.0-5.0); NEUTROPHILS # 2.5 10^3/uL (1.8-7.7); NEUTROPHILS % 48.9 % (36.0-66.0); PLATELET COUNT, AUTOMATED 241 10^3/uL (150-450); RED BLOOD COUNT 4.22 10^6/uL (4.00-5.40); WHITE BLOOD COUNT 5.1 10^3/uL (4.0-10.0)
[2019-02-13 09:56] LABS: INR 0.96; PROTHROMBIN TIME 12.9 SECONDS (12.1-14.4)
[2019-02-13 09:57] LABS: PARTIAL THROMBOPLASTIN TIME 28.9 SECONDS (25.4-37.6)
[2019-02-13 11:22] LABS: ALBUMIN 4.3 GM/DL (3.2-5.2); ALT/SGPT 20 U/L (12-78); BILIRUBIN,DIRECT 0.2 MG/DL (0.0-0.2); BILIRUBIN,TOTAL 0.5 MG/DL (0.2-1.0); BLOOD UREA NITROGEN 15 MG/DL (7-18); CALCIUM LEVEL 9.4 MG/DL (8.8-10.2); CARBON DIOXIDE LEVEL 28 MEQ/L (21-32); CHLORIDE LEVEL 99 MEQ/L (98-107); CPK CREATINE PHOSPHOKINASE 74 U/L (26-192); CREATININE FOR GFR 0.75 MG/DL (0.55-1.30); GLOMERULAR FILTRATION RATE > 60.0 (>32); GLUCOSE, FASTING 101 MG/DL (70-100); LIPASE 162 U/L (73-393); MB/CK RELATIVE INDEX 2.84 (< OR =4); POTASSIUM SERUM 3.8 MEQ/L (3.5-5.1); SODIUM LEVEL 134 MEQ/L (136-145); TOTAL PROTEIN 7.1 GM/DL (6.4-8.2); TROPONIN I < 0.02 NG/ML (< 0.10)
[2019-02-13] MEDS ORDERED: ISOVUE-370 76% 100ML VIAL (Q9967) As Ordered ONE (12:13)
[2019-02-13 14:44] LABS: CPK CREATINE PHOSPHOKINASE 73 U/L (26-192); TROPONIN I < 0.02 NG/ML (< 0.10)
--- NOTE | 2019-02-13 15:25 | REP ---
CT of the chest with IV contrast, CT pulmonary angiography: Comparison is 11/25/2018. There are no emboli in the pulmonary trunk or central pulmonary arteries. There are no emboli in the pulmonary lobe or segment branches. There are no acute infiltrates or pleural effusions. There are no masses or nodules. There is ensuing parenchymal scarring in the right lower lobe and there is a previous right lower lobe infiltrate. There is no mediastinal, hilar or axillary lymph node enlargement. Thoracic aorta is unremarkable. Cardiac size is normal. The visualized upper abdomen. There are hepatic cysts, unchanged. The visualized upper abdomen is otherwise unremarkable. Impression: There are no pulmonary emboli. There is parenchymal scarring in the right lower lobe from a previous infiltrate. Hepatic cysts. Electronically Signed by Drake Marie MD 02/13/2019 03:16 P
[2019-02-13 15:26] VITALS: BP 178/96
--- NOTE | 2019-02-14 21:27 | ECGEPIP ---
Stationary ECG Study 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
--- NOTE | 2019-02-14 21:34 | ECGEPIP ---
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
== END 2019-02-13 15:27 | disposition home or self-care (01) ==
LOC: M ED 07:57
DX: R07.9 Chest pain, unspecified (principal); I10 Essential (primary) hypertension; E78.5 Hyperlipidemia, unspecified; G43.909 Migraine, unspecified, not intractable, without status migrainosus; F32.9 Major depressive disorder, single episode, unspecified; M19.90 Unspecified osteoarthritis, unspecified site; Q44.6 Cystic disease of liver; Z79.899 Other long term (current) drug therapy; Z88.8 Allergy status to other drugs, medicaments and biological substances
CPT/HCPCS: 36415; 70450; 71046; 71275; 80048; 80076; 82550; 82553; 83690; 84439; 84443; 84484; 85025; 85610; 85730; 93005; 93041; 94760; 99285; Q9967

== ENCOUNTER → 2019-02-26 | Outpatient (REF) | payer MEDICARE ==
[2019-02-26 13:03] LABS: FOLATE 12.5 NG/ML (>5.4)
== END ==
LOC: M SFHCADAM 09:54
PROVIDERS: ATTEND Family Medicine
DX: R41.3 Other amnesia (principal)
CPT/HCPCS: 82607; 82746; G0463

== ENCOUNTER → 2019-03-27 | Outpatient (CLI) | payer MEDICARE ==
--- NOTE | 2019-03-27 09:53 | REP ---
CT CHEST WITHOUT CONTRAST: HISTORY: Other abnormal lung field finding. Comparison CT study February 13, 2019, December 21, 2018, and November 25, 2018. Previous study showed a gradually resolving infiltrate in the right lower lobe. TODAY'S CT FINDINGS: Preliminary digital opto mechanical technician radiograph demonstrates thoracolumbar scoliosis. Axial CT images demonstrate mild bibasilar linear fibrosis. This is a little more prominent on the right to the left. There is no longer any evidence of the previously noted right lower lobe opacity other than the residual fibrosis. No new infiltrate is seen. There is no evidence of pleural or pericardial effusion. Some vascular calcification is noted. No hilar or mediastinal mass or adenopathy is observed on this noncontrast study. There are multiple low-density cysts in the liver again noted. No adrenal lesion is seen. There is a tiny 2 mm nodular density in the right upper lobe on page 34 of 112 in series 201 of today's study. I cannot see this time in retrospect on the November 25, 2018 study but I believe it is visible on the December 21, 2018 study. The October study was acquired at a somewhat lower level of inspiration when the patient had pneumonia. No other pulmonary nodule is appreciated. IMPRESSION: Bibasilar fibrosis. Previously noted infiltrate in the right lower lobe has resolved. Stable hepatic cysts. Tiny, 2 mm, right upper lobe pulmonary nodule. Electronically Signed by Arnold Galindo MD 03/27/2019 09:58 A
== END ==
LOC: M RAD 08:21
PROVIDERS: ATTEND Internal Medicine Pulmonary Disease
DX: R91.1 Solitary pulmonary nodule (principal); J84.10 Pulmonary fibrosis, unspecified; K76.89 Other specified diseases of liver

== ENCOUNTER 2019-04-19 10:49 | Emergency (ER) | payer MEDICARE ==
[~2019-04-19] VITALS: Ht 160 cm; Wt 54.5 kg
[2019-04-19] MEDS ORDERED: INDA125TA (11:22)
[2019-04-19] MEDS ORDERED: VENL150C43 (11:22)
--- NOTE | 2019-04-19 12:21 | REP ---
CT BRAIN WITHOUT CONTRAST: HISTORY: Trauma. COMPARISON STUDY: February 13, 2019. FINDINGS: Digital lateral scout leaser view is unremarkable. Bone window settings show no bony calvarial fracture or destructive lesion. There is some soft tissue swelling about the scalp in the left temporal region mild in degree. On soft tissue window settings, there is diffuse generalized atrophy. Small vessel atherosclerotic changes are again noted in the periventricular white matter. There is no evidence of intracranial hemorrhage. No extra-axial fluid collection is seen. No mass or midline shift is observed. No evidence of infarct. IMPRESSION: Diffuse moderate atrophy and small vessel changes. No acute intracranial abnormality. Mild scalp swelling on the left. No skull fracture. Electronically Signed by Arnold Galindo MD 04/19/2019 03:32 P
--- NOTE | 2019-04-19 12:28 | REP ---
CT CERVICAL SPINE WITHOUT CONTRAST: HISTORY: Trauma. TECHNIQUE: Helical scanning is acquired, and 2 mm axial images are generated. Coronal and sagittal multiplanar reformation images are generated and reviewed. Comparison CT study is from May 04, 2014. FINDINGS: Preliminary digital furniture repairer radiograph is unremarkable. There is reversal of the normal cervical lordosis. No fracture or collapse is seen. There is a degenerative spondylolisthesis at C5-6, unchanged from the prior study, measuring 5 mm. Advanced degenerative disc disease is seen at C5-6, C6-7, and C4-5. There is nearly complete ankylosis of the C7-T1 disc, unchanged. There is osteoarthritic facet hypertrophy at multiple cervical levels bilaterally. There is no evidence of cervical spine fracture. The facet joints at C2-3 appear to be fused bilaterally. Prevertebral soft tissues are not widened. No intraspinal mass or hematoma is seen. IMPRESSION: Advanced degenerative disc and osteoarthritic facet disease. No change from comparison study 2013. No acute traumatic abnormality. Electronically Signed by Arnold Galindo MD 04/19/2019 03:34 P
[2019-04-19 12:45] LABS: BASO % 0.2 % (0.0-1.0); EOS # 0.1 10^3/uL (0.0-0.50); HEMATOCRIT 35.4 % (36.0-47.0); LYMPH # 0.9 10^3/uL (1.5-4.5); LYMPH % 14.4 % (24.0-44.0); MEAN CORPUSCULAR HEMOGLOBIN 30.4 pg (27.0-33.0); MEAN CORPUSCULAR HGB CONC 33.9 g/dl (32.0-36.5); MEAN CORPUSCULAR VOLUME 89.6 fl (80.0-96.0); MONO # 1.5 10^3/uL (0.0-0.8); MONO % 25.4 % (0.0-5.0); NEUTROPHILS # 3.5 10^3/uL (1.8-7.7); PLATELET COUNT, AUTOMATED 258 10^3/uL (150-450); RED BLOOD COUNT 3.95 10^6/uL (4.00-5.40); WHITE BLOOD COUNT 6.1 10^3/uL (4.0-10.0)
[2019-04-19 13:23] LABS: BLOOD UREA NITROGEN 20 MG/DL (7-18); CALCIUM LEVEL 9.5 MG/DL (8.8-10.2); CARBON DIOXIDE LEVEL 29 MEQ/L (21-32); CHLORIDE LEVEL 98 MEQ/L (98-107); CK-MB VALUE MASS 3.4 NG/ML (<3.6); CPK CREATINE PHOSPHOKINASE 119 U/L (26-192); CREATININE FOR GFR 0.77 MG/DL (0.55-1.30); GLOMERULAR FILTRATION RATE > 60.0 (>32); GLUCOSE, FASTING 111 MG/DL (70-100); MB/CK RELATIVE INDEX 2.86 (< OR =4); POTASSIUM SERUM 3.6 MEQ/L (3.5-5.1); SODIUM LEVEL 135 MEQ/L (136-145); TROPONIN I < 0.02 NG/ML (< 0.10)
[2019-04-19] MEDS ORDERED: VENL37.52 PO (16:02)
[2019-04-19 16:19] VITALS: BP 126/74
--- NOTE | 2019-04-21 06:38 | ECGEPIP ---
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
== END 2019-04-19 16:21 | disposition home or self-care (01) ==
LOC: M ED 10:49
DX: R55 Syncope and collapse (principal); S01.01XA Laceration without foreign body of scalp, initial encounter; W19.XXXA Unspecified fall, initial encounter; Y92.89 Other specified places as the place of occurrence of the external cause; I10 Essential (primary) hypertension; E78.5 Hyperlipidemia, unspecified; G25.81 Restless legs syndrome; G43.909 Migraine, unspecified, not intractable, without status migrainosus; F32.9 Major depressive disorder, single episode, unspecified; F41.9 Anxiety disorder, unspecified; Z96.651 Presence of right artificial knee joint; Z88.8 Allergy status to other drugs, medicaments and biological substances; Z79.899 Other long term (current) drug therapy

== ENCOUNTER 2019-04-26 08:35 | Outpatient (RCR) | payer MEDICARE ==
[~2019-04-26 08:35] MED LIST changes: +INDA125TA; +VENL150C43
== END 2019-04-28 ==
LOC: M PT 08:35
PROVIDERS: ATTEND Family Medicine
DX: R20.2 Paresthesia of skin (principal)

== ENCOUNTER 2019-05-08 09:14 | Outpatient (RCR) | payer MEDICARE ==
[~2019-05-08 09:14] MED LIST changes: -OMEP20CA3 PO; +OMEP20CA4 PO
== END 2019-05-29 ==
LOC: M PT 09:14
PROVIDERS: ATTEND Family Medicine
DX: Z51.89 Encounter for other specified aftercare (principal); R20.2 Paresthesia of skin

== ENCOUNTER → 2019-07-03 | Outpatient (REF) | payer MEDICARE ==
[2019-07-03 12:56] LABS: MEAN CORPUSCULAR HEMOGLOBIN 30.1 pg (27.0-33.0); MEAN CORPUSCULAR HGB CONC 33.3 g/dl (32.0-36.5); MEAN CORPUSCULAR VOLUME 90.2 fl (80.0-96.0); PLATELET COUNT, AUTOMATED 232 10^3/uL (150-450); RED BLOOD COUNT 3.99 10^6/uL (4.00-5.40); WHITE BLOOD COUNT 6.3 10^3/uL (4.0-10.0)
[2019-07-03 13:12] LABS: ALBUMIN 4.3 GM/DL (3.2-5.2); ALT/SGPT 21 U/L (12-78); BILIRUBIN,TOTAL 0.5 MG/DL (0.2-1.0); BLOOD UREA NITROGEN 17 MG/DL (7-18); CARBON DIOXIDE LEVEL 31 MEQ/L (21-32); CHLORIDE LEVEL 99 MEQ/L (98-107); CHOLESTEROL LEVEL 171 MG/DL (<200); CREATININE FOR GFR 0.68 MG/DL (0.55-1.30); FREE T4 1.08 NG/DL (0.76-1.46); GLOMERULAR FILTRATION RATE > 60.0 (>32); GLUCOSE, FASTING 89 MG/DL (70-100); HDL CHOLESTEROL 77 MG/DL (>40); LDL CHOLESTEROL 76 MG/DL (<100); NON-HDL-C 94 MG/DL; POTASSIUM SERUM 4.1 MEQ/L (3.5-5.1); SODIUM LEVEL 136 MEQ/L (136-145); TOTAL PROTEIN 7.4 GM/DL (6.4-8.2); TRIGLYCERIDES LEVEL 88 MG/DL (<150)
== END ==
LOC: M SFHCADAM 09:45
PROVIDERS: ATTEND Family Medicine
DX: I11.9 Hypertensive heart disease without heart failure (principal); E78.2 Mixed hyperlipidemia; R41.3 Other amnesia; F32.9 Major depressive disorder, single episode, unspecified; H61.21 Impacted cerumen, right ear
CPT/HCPCS: 69210; 80053; 80061; 84439; 84443; 85027; G0463

== ENCOUNTER → 2019-09-12 | Outpatient (CLI) | payer MEDICARE ==
--- NOTE | 2019-09-12 12:00 | REP ---
Right shoulder series: Four views. History: Pain in the right shoulder. Findings: The right glenohumeral and acromioclavicular joints are normally aligned. There is degenerative narrowing of the AC joint and hypertrophy of the distal clavicle consistent with AC joint osteoarthritis. No erosive changes seen. There is some chondrocalcinosis visible. A periarticular soft-tissue calcification is seen consistent with calcific tendonitis or bursitis. Impression: No acute abnormality. Osteoarthritis at the AC joint. Mild chondrocalcinosis. Periarticular soft tissue calcification. Electronically Signed by Arnold Galindo MD 09/12/2019 12:28 P
== END ==
LOC: M ADAMS 10:07
PROVIDERS: ATTEND Family Medicine
DX: M19.011 Primary osteoarthritis, right shoulder (principal); M25.511 Pain in right shoulder
CPT/HCPCS: 73030; 86580; G0463

== ENCOUNTER → 2019-11-27 | Outpatient (REF) | payer MEDICARE ==
[~2019-11-27] MED LIST changes: +OMEP1CAP73 PO; -OMEP20CA4 PO
[2019-11-27 14:29] LABS: APPEARANCE, URINE CLEAR (CLEAR); BACTERIA, URINE AUTO NEGATIVE (NEGATIVE); BILIRUBIN, URINE AUTO NEGATIVE (NEGATIVE); BLOOD, URINE BLOOD NEGATIVE (NEGATIVE); COLOR, URINE YELLOW (YELLOW); GLUCOSE, URINE (UA) AUTO NEGATIVE (NEGATIVE); KETONE, URINE AUTO NEGATIVE (NEGATIVE); LEUKOCYTE ESTERASE, URINE AUTO NEGATIVE (NEGATIVE); NITRITE, URINE AUTO NEGATIVE (NEGATIVE); PROTEIN, URINE AUTO NEGATIVE (NEGATIVE); RBC, URINE AUTO 1 /HPF (0-3); SPECIFIC GRAVITY URINE AUTO 1.013 (1.002-1.035); SQUAMOUS EPITHELIAL CELL UR AU 0 /HPF (0-6); UROBILINOGEN, URINE AUTO 0.2 mg/dL (0.0-2.0); WBC, URINE AUTO 0 /HPF (0-3)
== END ==
LOC: M SFHCADAM 13:41
PROVIDERS: ATTEND Family Medicine
DX: R30.0 Dysuria (principal)

== ENCOUNTER → 2020-09-16 | Outpatient (REF) | payer MEDICARE ==
[2020-09-16 12:26] LABS: HEMATOCRIT 39.1 % (36.0-47.0); HEMOGLOBIN 12.8 g/dl (12.0-15.5); MEAN CORPUSCULAR HEMOGLOBIN 29.9 pg (27.0-33.0); MEAN CORPUSCULAR HGB CONC 32.7 g/dl (32.0-36.5); MEAN CORPUSCULAR VOLUME 91.4 fl (80.0-96.0); PLATELET COUNT, AUTOMATED 220 10^3/uL (150-450); RED BLOOD COUNT 4.28 10^6/uL (4.00-5.40); WHITE BLOOD COUNT 8.1 10^3/uL (4.0-10.0)
[2020-09-16 13:17] LABS: ALBUMIN 4.3 GM/DL (3.2-5.2); ALT/SGPT 21 U/L (12-78); BILIRUBIN,TOTAL 0.5 MG/DL (0.2-1.0); BLOOD UREA NITROGEN 24 MG/DL (7-18); CALCIUM LEVEL 9.5 MG/DL (8.8-10.2); CARBON DIOXIDE LEVEL 32 MEQ/L (21-32); CHLORIDE LEVEL 101 MEQ/L (98-107); CHOLESTEROL LEVEL 175 MG/DL (<200); CHOLESTEROL RISK RATIO 2.302 (<5); CREATININE FOR GFR 0.93 MG/DL (0.55-1.30); FREE T4 1.09 NG/DL (0.76-1.46); GLOMERULAR FILTRATION RATE > 60.0 (>32); GLUCOSE, FASTING 85 MG/DL (70-100); HDL CHOLESTEROL 76 MG/DL (>40); LDL CHOLESTEROL 81 MG/DL (<100); NON-HDL-C 99 MG/DL; SODIUM LEVEL 138 MEQ/L (136-145); TOTAL PROTEIN 7.7 GM/DL (6.4-8.2); TRIGLYCERIDES LEVEL 89 MG/DL (<150)
== END ==
LOC: M SFHCADAM 10:23
PROVIDERS: ATTEND Family Medicine
DX: F32.9 Major depressive disorder, single episode, unspecified (principal); G25.81 Restless legs syndrome; I11.9 Hypertensive heart disease without heart failure; E78.2 Mixed hyperlipidemia
CPT/HCPCS: 80053; 80061; 84439; 84443; 85027; G0463

== ENCOUNTER → 2020-10-14 | Outpatient (REF) | payer MEDICARE | PROVIDERS: ATTEND Internal Medicine | DX: Z20.828 Contact with and (suspected) exposure to other viral communicable diseases (principal) ==

== ENCOUNTER → 2020-10-19 | Outpatient (REF) | payer MEDICARE | PROVIDERS: ATTEND Internal Medicine | DX: Z20.828 Contact with and (suspected) exposure to other viral communicable diseases (principal) ==

== ENCOUNTER → 2020-10-26 | Outpatient (REF) | payer MEDICARE | PROVIDERS: ATTEND Internal Medicine | DX: Z20.828 Contact with and (suspected) exposure to other viral communicable diseases (principal) ==

== ENCOUNTER → 2020-11-02 | Outpatient (REF) | payer MEDICARE | PROVIDERS: ATTEND Internal Medicine | DX: Z11.52 Encounter for screening for COVID-19 (principal) ==

== ENCOUNTER → 2020-11-09 | Outpatient (REF) | payer MEDICARE | PROVIDERS: ATTEND Internal Medicine | DX: Z20.822 Contact with and (suspected) exposure to COVID-19 (principal) ==

== ENCOUNTER → 2020-11-16 | Outpatient (REF) | payer MEDICARE | PROVIDERS: ATTEND Internal Medicine | DX: Z20.822 Contact with and (suspected) exposure to COVID-19 (principal) ==

== ENCOUNTER → 2020-11-23 | Outpatient (REF) | payer MEDICARE | PROVIDERS: ATTEND Internal Medicine | DX: Z20.822 Contact with and (suspected) exposure to COVID-19 (principal) ==

== ENCOUNTER → 2020-11-30 | Outpatient (REF) | payer MEDICARE | PROVIDERS: ATTEND Internal Medicine | DX: Z11.52 Encounter for screening for COVID-19 (principal) ==

== ENCOUNTER → 2020-12-07 | Outpatient (REF) | payer MEDICARE | PROVIDERS: ATTEND Internal Medicine | DX: Z20.822 Contact with and (suspected) exposure to COVID-19 (principal) ==

== ENCOUNTER → 2020-12-14 | Outpatient (REF) | payer MEDICARE | PROVIDERS: ATTEND Internal Medicine | DX: Z20.822 Contact with and (suspected) exposure to COVID-19 (principal) ==

== ENCOUNTER → 2021-03-05 | Outpatient (REF) | payer MEDICARE ==
[2021-03-05 13:05] LABS: BASO % 0.2 % (0.0-1.0); EOS # 0.1 10^3/uL (0.0-0.5); EOS % 0.9 % (0.0-3.0); HEMATOCRIT 38.6 % (36.0-47.0); HEMOGLOBIN 12.6 g/dl (12.0-15.5); LYMPH # 1.9 10^3/uL (1.5-5.0); LYMPH % 22.9 % (24.0-44.0); MEAN CORPUSCULAR HEMOGLOBIN 29.8 pg (27.0-33.0); MEAN CORPUSCULAR HGB CONC 32.6 g/dl (32.0-36.5); MEAN CORPUSCULAR VOLUME 91.3 fl (80.0-96.0); MONO # 2.3 10^3/uL (0.0-0.8); MONO % 27.2 % (2.0-8.0); NEUTROPHILS # 4.1 10^3/uL (1.5-8.5); NEUTROPHILS % 48.1 % (36.0-66.0); PLATELET COUNT, AUTOMATED 252 10^3/uL (150-450); RED BLOOD COUNT 4.23 10^6/uL (4.00-5.40)
[2021-03-05 13:38] LABS: ALBUMIN 4.1 GM/DL (3.2-5.2); ALT/SGPT 21 U/L (12-78); BILIRUBIN,TOTAL 0.5 MG/DL (0.2-1.0); BLOOD UREA NITROGEN 21 MG/DL (7-18); CALCIUM LEVEL 9.7 MG/DL (8.8-10.2); CARBON DIOXIDE LEVEL 29 MEQ/L (21-32); CHLORIDE LEVEL 101 MEQ/L (98-107); CREATININE FOR GFR 0.78 MG/DL (0.55-1.30); FREE T4 1.12 NG/DL (0.76-1.46); GLOMERULAR FILTRATION RATE > 60.0 (>32); GLUCOSE, FASTING 89 MG/DL (70-100); MAGNESIUM LEVEL 2.2 MG/DL (1.8-2.4); SODIUM LEVEL 137 MEQ/L (136-145); TOTAL PROTEIN 7.3 GM/DL (6.4-8.2)
[2021-03-05 13:46] LABS: WHITE BLOOD COUNT 8.5 10^3/uL (4.0-10.0)
== END ==
LOC: M SFHCADAM 11:02
PROVIDERS: ATTEND Physician Assistant
DX: R42 Dizziness and giddiness (principal); I11.9 Hypertensive heart disease without heart failure; R26.89 Other abnormalities of gait and mobility; Z79.899 Other long term (current) drug therapy
CPT/HCPCS: 80053; 83735; 84439; 84443; 85025; G0463

== ENCOUNTER → 2021-03-18 | Outpatient (CLI) | payer MEDICARE ==
[~2021-03-18] MED LIST changes: +PROHANCE 279.3MG/ML 15ML VIAL As Ordered ONE
--- NOTE | 2021-03-18 15:48 | REP ---
INDICATION: VERTIGO, IMBALANCE. COMPARISON: Comparison head CT study April 19, 2019.. TECHNIQUE: Axial and sagittal imaging planes are utilized for T1 and T2-weighted scans. Sequences include spin-echo, fast spin echo, FLAIR, and diffusion weighted sequences. Gadolinium enhancement dose is 12 mL of intravenous ProHance. Post gadolinium enhanced T1 weighted axial, coronal and sagittal images are included. FINDINGS: No bony calvarial lesion is seen. Craniocervical junction upper cervical cord are normal in appearance. There is mild to moderate generalized volume loss. Fairly extensive pattern of subcortical and periventricular white matter changes are seen on FLAIR images consistent with advanced small vessel atherosclerotic changes. Diffusion-weighted scans show no evidence of focally restricted diffusion to suggest acute ischemia. There is no evidence of intracranial mass or hemorrhage. No vascular abnormality is appreciated. There is no evidence of extra-axial fluid collection or midline shift. On postcontrast images enhancement is seen in expected vascular structures. No abnormal intracranial contrast enhancement is seen. IMPRESSION: Generalized volume loss. Extensive small-vessel changes. Findings similar to CT scan from April 19, 2019. No acute intracranial abnormality. <Electronically signed by Sergei Galindo > 03/18/21 [id number]
== END ==
LOC: M RAD 14:19
PROVIDERS: ATTEND Physician Assistant
DX: R42 Dizziness and giddiness (principal); I11.9 Hypertensive heart disease without heart failure; R26.89 Other abnormalities of gait and mobility
CPT/HCPCS: 70553; A9576

== ENCOUNTER → 2021-12-01 | Outpatient (REF) | payer MEDICARE ==
[~2021-12-01] MED LIST changes: +LOSA100T45 PO; -LOSA100T50 PO; -PROHANCE 279.3MG/ML 15ML VIAL As Ordered ONE
[2021-12-01 15:30] LABS: HEMATOCRIT 39.1 % (36.0-47.0); HEMOGLOBIN 12.7 g/dl (12.0-15.5); MEAN CORPUSCULAR HEMOGLOBIN 29.5 pg (27.0-33.0); MEAN CORPUSCULAR HGB CONC 32.5 g/dl (32.0-36.5); MEAN CORPUSCULAR VOLUME 90.7 fl (80.0-96.0); PLATELET COUNT, AUTOMATED 211 10^3/uL (150-450); RED BLOOD COUNT 4.31 10^6/uL (4.00-5.40); WHITE BLOOD COUNT 8.9 10^3/uL (4.0-10.0)
[2021-12-01 16:01] LABS: ALBUMIN 4.2 GM/DL (3.2-5.2); ALT/SGPT 26 U/L (12-78); BILIRUBIN,TOTAL 0.4 MG/DL (0.2-1.0); BLOOD UREA NITROGEN 13 MG/DL (7-18); CALCIUM LEVEL 9.3 MG/DL (8.8-10.2); CARBON DIOXIDE LEVEL 31 MEQ/L (21-32); CHLORIDE LEVEL 98 MEQ/L (98-107); CHOLESTEROL LEVEL 154 MG/DL (<200); CHOLESTEROL RISK RATIO 2.026 (<5); CREATININE FOR GFR 0.88 MG/DL (0.55-1.30); FREE T4 1.06 NG/DL (0.76-1.46); GLOMERULAR FILTRATION RATE > 60.0 (>32); GLUCOSE, FASTING 81 MG/DL (70-100); HDL CHOLESTEROL 76 MG/DL (>40); LDL CHOLESTEROL 64 MG/DL (<100); NON-HDL-C 78 MG/DL; POTASSIUM SERUM 3.6 MEQ/L (3.5-5.1); SODIUM LEVEL 134 MEQ/L (136-145); TOTAL PROTEIN 7.3 GM/DL (6.4-8.2); TRIGLYCERIDES LEVEL 68 MG/DL (<150)
== END ==
PROVIDERS: ATTEND Family Medicine
DX: I11.9 Hypertensive heart disease without heart failure (principal); E78.2 Mixed hyperlipidemia; F32.9 Major depressive disorder, single episode, unspecified; F03.90 Unspecified dementia, unspecified severity, without behavioral disturbance, psychotic disturbance, mood disturbance, and anxiety

== ENCOUNTER → 2022-02-07 | Outpatient (REF) | payer MEDICARE ==
[2022-02-07 12:48] LABS: BLOOD UREA NITROGEN 19 MG/DL (7-18); CALCIUM LEVEL 9.5 MG/DL (8.8-10.2); CARBON DIOXIDE LEVEL 31 MEQ/L (21-32); CHLORIDE LEVEL 92 MEQ/L (98-107); CREATININE FOR GFR 0.87 MG/DL (0.55-1.30); GLOMERULAR FILTRATION RATE > 60.0 (>32); GLUCOSE, FASTING 72 MG/DL (70-100); SODIUM LEVEL 132 MEQ/L (136-145)
== END ==
PROVIDERS: ATTEND Physician Assistant
DX: I11.9 Hypertensive heart disease without heart failure (principal); R60.9 Edema, unspecified

== ENCOUNTER → 2022-02-15 | Outpatient (REF) | payer MEDICARE ==
[2022-02-15 13:26] LABS: CALCIUM LEVEL 9.5 MG/DL (8.8-10.2); CREATININE FOR GFR 0.99 MG/DL (0.55-1.30); GLOMERULAR FILTRATION RATE 56.6 (>32); MAGNESIUM LEVEL 1.9 MG/DL (1.8-2.4); POTASSIUM SERUM 3.5 MEQ/L (3.5-5.1)
== END ==
LOC: M SFHCADAM 11:24
PROVIDERS: ATTEND Family Medicine
DX: I50.9 Heart failure, unspecified (principal)

== ENCOUNTER → 2022-02-21 | Outpatient (REF) | payer MEDICARE ==
[2022-02-21 12:55] LABS: CALCIUM LEVEL 9.2 MG/DL (8.8-10.2); CREATININE FOR GFR 1.23 MG/DL (0.55-1.30); GLOMERULAR FILTRATION RATE 44.1 (>32); POTASSIUM SERUM 3.1 MEQ/L (3.5-5.1)
== END ==
PROVIDERS: ATTEND Family Medicine
DX: I50.9 Heart failure, unspecified (principal)

== ENCOUNTER → 2022-02-23 | Outpatient (REF) | payer MEDICARE ==
[2022-02-23 13:25] LABS: HEMATOCRIT 35.9 % (36.0-47.0); HEMOGLOBIN 12.1 g/dl (12.0-15.5); MEAN CORPUSCULAR HEMOGLOBIN 29.4 pg (27.0-33.0); MEAN CORPUSCULAR HGB CONC 33.7 g/dl (32.0-36.5); MEAN CORPUSCULAR VOLUME 87.1 fl (80.0-96.0); PLATELET COUNT, AUTOMATED 333 10^3/uL (150-450); RED BLOOD COUNT 4.12 10^6/uL (4.00-5.40); WHITE BLOOD COUNT 10.7 10^3/uL (4.0-10.0)
[2022-02-23 13:28] LABS: CALCIUM LEVEL 9.2 MG/DL (8.8-10.2); CREATININE FOR GFR 1.06 MG/DL (0.55-1.30); GLOMERULAR FILTRATION RATE 52.3 (>32); POTASSIUM SERUM 3.3 MEQ/L (3.5-5.1)
[2022-02-23 13:29] LABS: ALBUMIN 3.7 GM/DL (3.2-5.2); BILIRUBIN,TOTAL 0.6 MG/DL (0.2-1.0); TOTAL PROTEIN 6.8 GM/DL (6.4-8.2)
== END ==
LOC: M SFHCADAM 09:00
PROVIDERS: ATTEND Physician Assistant
DX: I11.9 Hypertensive heart disease without heart failure (principal); R60.9 Edema, unspecified; E87.6 Hypokalemia; R53.83 Other fatigue; I50.9 Heart failure, unspecified

== ENCOUNTER → 2022-03-02 | Outpatient (REF) | payer MEDICARE ==
[2022-03-02 13:33] LABS: BLOOD UREA NITROGEN 18 MG/DL (7-18); CARBON DIOXIDE LEVEL 31 MEQ/L (21-32); CHLORIDE LEVEL 92 MEQ/L (98-107); CREATININE FOR GFR 0.86 MG/DL (0.55-1.30); GLOMERULAR FILTRATION RATE > 60.0 (>32); GLUCOSE, FASTING 92 MG/DL (70-100); SODIUM LEVEL 132 MEQ/L (136-145)
== END ==
PROVIDERS: ATTEND Family Medicine
DX: I50.9 Heart failure, unspecified (principal)

== ENCOUNTER → 2022-03-17 | Outpatient (REF) | payer MEDICARE ==
[2022-03-17 14:22] LABS: APPEARANCE, URINE HAZY (CLEAR); BACTERIA, URINE AUTO NEGATIVE (NEGATIVE); BILIRUBIN, URINE AUTO NEGATIVE (NEGATIVE); BLOOD, URINE BLOOD NEGATIVE (NEGATIVE); COLOR, URINE YELLOW (YELLOW); GLUCOSE, URINE (UA) AUTO NEGATIVE (NEGATIVE); KETONE, URINE AUTO NEGATIVE (NEGATIVE); LEUKOCYTE ESTERASE, URINE AUTO NEGATIVE (NEGATIVE); MUCUS, URINE SMALL (NEGATIVE); NITRITE, URINE AUTO NEGATIVE (NEGATIVE); PROTEIN, URINE AUTO NEGATIVE (NEGATIVE); RBC, URINE AUTO 2 /HPF (0-3); SPECIFIC GRAVITY URINE AUTO 1.016 (1.002-1.035); SQUAMOUS EPITHELIAL CELL UR AU 1 /HPF (0-6); UROBILINOGEN, URINE AUTO 0.2 mg/dL (0.0-2.0); WBC, URINE AUTO 2 /HPF (0-3)
== END ==
PROVIDERS: ATTEND Family Medicine
DX: R41.0 Disorientation, unspecified (principal)

== ENCOUNTER → 2022-03-18 | Outpatient (REF) | payer MEDICARE ==
[2022-03-18 19:09] LABS: APPEARANCE, URINE CLEAR (CLEAR); BACTERIA, URINE AUTO NEGATIVE (NEGATIVE); BILIRUBIN, URINE AUTO NEGATIVE (NEGATIVE); BLOOD, URINE BLOOD NEGATIVE (NEGATIVE); COLOR, URINE YELLOW (YELLOW); GLUCOSE, URINE (UA) AUTO NEGATIVE (NEGATIVE); KETONE, URINE AUTO NEGATIVE (NEGATIVE); LEUKOCYTE ESTERASE, URINE AUTO NEGATIVE (NEGATIVE); NITRITE, URINE AUTO NEGATIVE (NEGATIVE); PROTEIN, URINE AUTO NEGATIVE (NEGATIVE); RBC, URINE AUTO 5 /HPF (0-3); SPECIFIC GRAVITY URINE AUTO 1.008 (1.002-1.035); SQUAMOUS EPITHELIAL CELL UR AU 1 /HPF (0-6); UROBILINOGEN, URINE AUTO 0.2 mg/dL (0.0-2.0); WBC, URINE AUTO 23 /HPF (0-3)
== END ==
LOC: M LAB REF 18:05
PROVIDERS: ATTEND Family Medicine
DX: R41.0 Disorientation, unspecified (principal)

== ENCOUNTER 2022-05-01 15:17 | Inpatient (IN) | payer MEDICARE ==
[~2022-05-01] VITALS: Ht 165.1 cm; Wt 60.0 kg
[2022-05-01 17:14] LABS: BASO % 0.2 % (0.0-1.0); EOS % 0.1 % (0.0-3.0); HEMATOCRIT 37.4 % (36.0-47.0); HEMOGLOBIN 13.1 g/dl (12.0-15.5); LYMPH # 1.7 10^3/uL (1.5-5.0); LYMPH % 13.4 % (24.0-44.0); MEAN CORPUSCULAR HEMOGLOBIN 30.3 pg (27.0-33.0); MEAN CORPUSCULAR VOLUME 86.4 fl (80.0-96.0); MONO % 24.9 % (2.0-8.0); NEUTROPHILS # 7.6 10^3/uL (1.5-8.5); NEUTROPHILS % 60.4 % (36.0-66.0); PLATELET COUNT, AUTOMATED 276 10^3/uL (150-450); RED BLOOD COUNT 4.33 10^6/uL (4.00-5.40); WHITE BLOOD COUNT 12.6 10^3/uL (4.0-10.0)
[2022-05-01 17:24] LABS: CALCIUM LEVEL 9.9 MG/DL (8.8-10.2); CREATININE FOR GFR 1.21 MG/DL (0.55-1.30); GLOMERULAR FILTRATION RATE 44.9 (>32); POTASSIUM SERUM 2.7 MEQ/L (3.5-5.1)
[2022-05-01] MEDS ORDERED: POTASSIUM CHLORIDE 10MEQ SR TABLET PO ONE (17:25)
[2022-05-01] MEDS ORDERED: SIMV20TA22 PO (17:33)
[2022-05-01] MEDS ORDERED: INDA125TA PO (17:33)
[2022-05-01] MEDS ORDERED: VENL37.598 PO (17:33)
[2022-05-01] MEDS ORDERED: PROP15DR12 OU (17:33)
[2022-05-01] MEDS ORDERED: LOSA100T45 PO (17:33)
[2022-05-01] MEDS ORDERED: OMEP1CAP73 PO (17:33)
[2022-05-01] MEDS ORDERED: IBUP1TAB6 PO (17:33)
[2022-05-01] MEDS ORDERED: FURO20TA2 PO (17:33)
[2022-05-01] MEDS ORDERED: FLUT15.820 NARES (17:33)
[2022-05-01] MEDS ORDERED: VITATAB73 PO (17:33)
[2022-05-01] MEDS ORDERED: ARIC1TAB PO (17:33)
[2022-05-01] MEDS ORDERED: POTA-151 PO (17:33)
[2022-05-01] MEDS ORDERED: HOME MED LIST COMPLETE! XX SCH (17:40)
[2022-05-01 17:49] LABS: MONO # 3.1 10^3/uL (0.0-0.8)
[2022-05-01] MEDS ORDERED: ACETAMINOPHEN TAB 650MG DOSE (2X325MG) PO PRN (18:30)
[2022-05-01] MEDS ORDERED: ONDANSETRON 4MG 2ML VIAL IV PRN (19:10)
[2022-05-01] MEDS ORDERED: carisoprodoL 350 MG TAB PO PRN (19:10)
[2022-05-01] MEDS ORDERED: NS 1,000 ML IV SCH (19:15)
[2022-05-01 19:24] LABS: INR 0.93; PROTHROMBIN TIME 12.9 SECONDS (12.7-14.5)
[2022-05-01 19:34] LABS: CALCIUM LEVEL 9.9 MG/DL (8.8-10.2); CREATININE FOR GFR 1.1 MG/DL (0.55-1.30); GLOMERULAR FILTRATION RATE 50.1 (>32); POTASSIUM SERUM 2.7 MEQ/L (3.5-5.1)
[2022-05-01 20:37] LABS: RSV AMPLIFICATION NEGATIVE (NEGATIVE)
[2022-05-01] MEDS ORDERED: POLYVINYL ALCOHOL OPHTH SOLN 15 ML(LIQUITEARS) OU PRN (20:45)
[2022-05-01 21:00] VITALS: BP 148/76
[2022-05-01] MEDS: SIMVASTATIN 20 MG TAB PO SCH (21:00)
[2022-05-01] MEDS: POTASSIUM CHLORIDE 10MEQ SR TABLET PO SCH (21:00)
[2022-05-01] MEDS ORDERED: LOSARTAN 50MG TABLET PO SCH (21:00)
[2022-05-01 21:21] LABS: MAGNESIUM LEVEL 1.8 MG/DL (1.8-2.4)
[2022-05-01 22:32] VITALS: BP 118/64
[2022-05-01] MEDS: DONEPEZIL 5 MG TAB PO SCH (22:54)
[2022-05-02] VITALS (11 sets, daily range): BP systolic 110–128; BP diastolic 61–78; O2SAT 89–96
[2022-05-02] MEDS ORDERED: MAGNESIUM OXIDE 400MG TAB (MAG-OX) PO ONE
[2022-05-02] MEDS ORDERED: UNRESOLVED CLARIFICATION ENTRY XX SCH (00:01)
[2022-05-02] MEDS ORDERED: NS 1,000 ML IV SCH (01:00)
[2022-05-02 01:54] LABS: BLOOD UREA NITROGEN 15 MG/DL (7-18); CALCIUM LEVEL 8.9 MG/DL (8.8-10.2); CARBON DIOXIDE LEVEL 31 MEQ/L (21-32); CHLORIDE LEVEL 90 MEQ/L (98-107); CREATININE FOR GFR 0.92 MG/DL (0.55-1.30); GLOMERULAR FILTRATION RATE > 60.0 (>32); GLUCOSE, FASTING 126 MG/DL (70-100); POTASSIUM SERUM 3.1 MEQ/L (3.5-5.1); SODIUM LEVEL 128 MEQ/L (136-145)
[2022-05-02] MEDS ORDERED: KCL 20MEQ in NS 1000ML 1,000 ML IV SCH (04:25)
[2022-05-02] MEDS ORDERED: POTASSIUM CHLORIDE 10MEQ SR TABLET PO ONE ×2 (05:00)
[2022-05-02 05:51] LABS: HEMATOCRIT 34.2 % (36.0-47.0); HEMOGLOBIN 12.3 g/dl (12.0-15.5); MEAN CORPUSCULAR HEMOGLOBIN 30.7 pg (27.0-33.0); MEAN CORPUSCULAR VOLUME 85.3 fl (80.0-96.0); PLATELET COUNT, AUTOMATED 224 10^3/uL (150-450); RED BLOOD COUNT 4.01 10^6/uL (4.00-5.40); WHITE BLOOD COUNT 15.5 10^3/uL (4.0-10.0)
[2022-05-02 06:22] LABS: ALBUMIN 3.7 GM/DL (3.2-5.2); ALT/SGPT 22 U/L (12-78); BLOOD UREA NITROGEN 15 MG/DL (7-18); CALCIUM LEVEL 8.9 MG/DL (8.8-10.2); CARBON DIOXIDE LEVEL 31 MEQ/L (21-32); CHLORIDE LEVEL 92 MEQ/L (98-107); CREATININE FOR GFR 0.76 MG/DL (0.55-1.30); GLOMERULAR FILTRATION RATE > 60.0 (>32); GLUCOSE, FASTING 114 MG/DL (70-100); MAGNESIUM LEVEL 1.7 MG/DL (1.8-2.4); POTASSIUM SERUM 3.4 MEQ/L (3.5-5.1); SODIUM LEVEL 129 MEQ/L (136-145); TOTAL PROTEIN 6.4 GM/DL (6.4-8.2)
[2022-05-02] MEDS: NS 1,000 ML IV SCH ×2 (07:53→14:37)
[2022-05-02] MEDS: VITAMIN B COMPLEX/VIT C CAP PO SCH (07:54)
[2022-05-02] MEDS: POTASSIUM CHLORIDE 10MEQ SR TABLET PO SCH ×2 (07:54→20:27)
[2022-05-02] MEDS: FLUTICASONE PROP 0.05% NASAL SPRAY 16 GM (FLONASE) NARES SCH (07:54)
[2022-05-02] MEDS: OMEPRAZOLE 20MG CAP PO SCH (07:54)
[2022-05-02] MEDS ORDERED: MAG SULF 1GM/100ML (MAG RUN) 1 GM in IV 1 EA IV ONE (08:00)
[2022-05-02] MEDS ORDERED: ENOXAPARIN 40MG/0.4ML SYRINGE (J1650 PER 10MG) SC SCH (09:00)
[2022-05-02 09:07] LABS: CHLORIDE,RANDOM URINE 110 MEQ/L; CREATININE,RANDOM URINE 48.9 MG/DL; POTASSIUM RANDOM URINE 52.9 MEQ/L
[2022-05-02 09:26] LABS: OSMOLALITY URINE 394 MOSM/KG (50-1400)
[2022-05-02] MEDS ORDERED: dexameTHASONE 4 MG/ML 1ML VIAL (J1100 PER 1MG) As Ordered ONE (10:39)
[2022-05-02] MEDS ORDERED: propofoL 200 MG/20 ML VIAL As Ordered ONE ×2 (10:39→12:27)
[2022-05-02] MEDS ORDERED: KETAMINE HCL 200 MG/20 ML VIAL As Ordered ONE (11:22)
[2022-05-02] MEDS ORDERED: BUPIVACAINE LIPOSOME/PF 1.3% 20ML VIAL (13.3MG/ML)(EXPAREL) As Ordered ONE (11:31)
[2022-05-02] MEDS ORDERED: ceFAZolin 2 GM/D5W 50 ML IV BAG (J0690 PER 500MG) As Ordered ONE (11:31)
[2022-05-02] MEDS ORDERED: BUPIVACAINE HCL 0.25% 10ML VIAL As Ordered ONE (11:31)
[2022-05-02 11:40] LABS: BLOOD UREA NITROGEN 14 MG/DL (7-18); CALCIUM LEVEL 9.1 MG/DL (8.8-10.2); CARBON DIOXIDE LEVEL 27 MEQ/L (21-32); CHLORIDE LEVEL 96 MEQ/L (98-107); CREATININE FOR GFR 0.75 MG/DL (0.55-1.30); GLOMERULAR FILTRATION RATE > 60.0 (>32); GLUCOSE, FASTING 117 MG/DL (70-100); MAGNESIUM LEVEL 2.4 MG/DL (1.8-2.4); POTASSIUM SERUM 4.2 MEQ/L (3.5-5.1); SODIUM LEVEL 132 MEQ/L (136-145)
[2022-05-02] MEDS ORDERED: fentaNYL 100 MCG/2 ML INJECTION As Ordered ONE (12:23)
[2022-05-02] MEDS ORDERED: fentaNYL 100 MCG/2 ML INJECTION IV PRN (13:20)
[2022-05-02] MEDS ORDERED: ONDANSETRON 4MG 2ML VIAL IV PRN (13:20)
[2022-05-02] MEDS ORDERED: LR 1,000 ML IV SCH (13:20)
[2022-05-02] MEDS ORDERED: MORPHINE 2 MG/ML 1ML VIAL IV PRN (13:20)
[2022-05-02 17:23] LABS: BLOOD UREA NITROGEN 12 MG/DL (7-18); CALCIUM LEVEL 9.2 MG/DL (8.8-10.2); CARBON DIOXIDE LEVEL 25 MEQ/L (21-32); CHLORIDE LEVEL 98 MEQ/L (98-107); CREATININE FOR GFR 0.69 MG/DL (0.55-1.30); GLOMERULAR FILTRATION RATE > 60.0 (>32); GLUCOSE, FASTING 135 MG/DL (70-100); POTASSIUM SERUM 3.9 MEQ/L (3.5-5.1); SODIUM LEVEL 131 MEQ/L (136-145)
[2022-05-02] MEDS: MORPHINE 2 MG/ML 1ML VIAL IV PRN (19:03)
[2022-05-02] MEDS ORDERED: RAMELTEON 8 MG TAB (ROZEREM) PO PRN (20:00)
[2022-05-02] MEDS ORDERED: MORPHINE 2 MG/ML 1ML VIAL IV ONE (20:10)
[2022-05-02] MEDS: ceFAZolin SOD 1 GM in D5W MINI-BAG PLUS 50 ML IV SCH (20:26)
[2022-05-02] MEDS: DONEPEZIL 5 MG TAB PO SCH (20:27)
[2022-05-02] MEDS: SIMVASTATIN 20 MG TAB PO SCH (20:27)
[2022-05-03] MEDS ORDERED: NS 1,000 ML IV SCH (00:20)
[2022-05-03 03:00] VITALS: BP 113/70
[2022-05-03] MEDS: ceFAZolin SOD 1 GM in D5W MINI-BAG PLUS 50 ML IV SCH (04:25)
[2022-05-03 06:00] VITALS: BP 111/70
[2022-05-03 06:34] LABS: HEMOGLOBIN 11.7 g/dl (12.0-15.5); MEAN CORPUSCULAR HEMOGLOBIN 30.6 pg (27.0-33.0); MEAN CORPUSCULAR HGB CONC 35.5 g/dl (32.0-36.5); MEAN CORPUSCULAR VOLUME 86.4 fl (80.0-96.0); PLATELET COUNT, AUTOMATED 191 10^3/uL (150-450); RED BLOOD COUNT 3.82 10^6/uL (4.00-5.40); WHITE BLOOD COUNT 24.3 10^3/uL (4.0-10.0)
[2022-05-03 07:03] LABS: BLOOD UREA NITROGEN 13 MG/DL (7-18); CALCIUM LEVEL 9.2 MG/DL (8.8-10.2); CARBON DIOXIDE LEVEL 25 MEQ/L (21-32); CHLORIDE LEVEL 97 MEQ/L (98-107); CREATININE FOR GFR 0.65 MG/DL (0.55-1.30); GLOMERULAR FILTRATION RATE > 60.0 (>32); GLUCOSE, FASTING 117 MG/DL (70-100); SODIUM LEVEL 133 MEQ/L (136-145)
[2022-05-03] MEDS ORDERED: ENOXAPARIN 40MG/0.4ML SYRINGE (J1650 PER 10MG) SC SCH (09:00)
[2022-05-03] MEDS: POTASSIUM CHLORIDE 10MEQ SR TABLET PO SCH ×2 (10:03→20:12)
[2022-05-03] MEDS: OMEPRAZOLE 20MG CAP PO SCH (10:03)
[2022-05-03] MEDS: VITAMIN B COMPLEX/VIT C CAP PO SCH (10:03)
[2022-05-03] MEDS: FLUTICASONE PROP 0.05% NASAL SPRAY 16 GM (FLONASE) NARES SCH (10:03)
[2022-05-03] MEDS: MORPHINE 2 MG/ML 1ML VIAL IV PRN (10:04)
[2022-05-03 10:33] VITALS: O2SAT 97
[2022-05-03] MEDS ORDERED: XARE10TA PO (10:53)
[2022-05-03] MEDS: VENLAFAXINE **XR** 37.5 MG CAPSULE PO SCH ×2 (12:10→20:12)
[2022-05-03 14:00] VITALS: BP 104/63
[2022-05-03] MEDS ORDERED: RIVAROXABAN 10MG TAB (XARELTO) PO SCH (18:00)
[2022-05-03 19:30] LABS: BASO % 0.2 % (0.0-1.0); EOS % 0.2 % (0.0-3.0); HEMATOCRIT 31.8 % (36.0-47.0); HEMOGLOBIN 11.1 g/dl (12.0-15.5); LYMPH # 1.1 10^3/uL (1.5-5.0); LYMPH % 5.6 % (24.0-44.0); MEAN CORPUSCULAR HEMOGLOBIN 30.2 pg (27.0-33.0); MEAN CORPUSCULAR HGB CONC 34.9 g/dl (32.0-36.5); MEAN CORPUSCULAR VOLUME 86.6 fl (80.0-96.0); MONO % 29.1 % (2.0-8.0); NEUTROPHILS # 12.6 10^3/uL (1.5-8.5); PLATELET COUNT, AUTOMATED 182 10^3/uL (150-450); RED BLOOD COUNT 3.67 10^6/uL (4.00-5.40); WHITE BLOOD COUNT 19.7 10^3/uL (4.0-10.0)
[2022-05-03 20:02] LABS: MONO # 5.8 10^3/uL (0.0-0.8)
[2022-05-03] MEDS: DONEPEZIL 5 MG TAB PO SCH (20:13)
[2022-05-03] MEDS: SIMVASTATIN 20 MG TAB PO SCH (20:13)
[2022-05-03 22:00] VITALS: BP 104/56
[2022-05-04 06:00] VITALS: BP 107/81
[2022-05-04] MEDS: MORPHINE 2 MG/ML 1ML VIAL IV PRN (06:35)
[2022-05-04] MEDS: POTASSIUM CHLORIDE 10MEQ SR TABLET PO SCH (09:39)
[2022-05-04] MEDS: VENLAFAXINE **XR** 37.5 MG CAPSULE PO SCH (09:40)
[2022-05-04] MEDS: FLUTICASONE PROP 0.05% NASAL SPRAY 16 GM (FLONASE) NARES SCH (09:40)
[2022-05-04] MEDS: OMEPRAZOLE 20MG CAP PO SCH (09:40)
[2022-05-04] MEDS: VITAMIN B COMPLEX/VIT C CAP PO SCH (09:40)
[2022-05-04 10:04] VITALS: O2SAT 96
[2022-05-04 10:51] LABS: HEMATOCRIT 32.2 % (36.0-47.0); HEMOGLOBIN 11.3 g/dl (12.0-15.5); MEAN CORPUSCULAR HGB CONC 35.1 g/dl (32.0-36.5); MEAN CORPUSCULAR VOLUME 88.5 fl (80.0-96.0); PLATELET COUNT, AUTOMATED 190 10^3/uL (150-450); RED BLOOD COUNT 3.64 10^6/uL (4.00-5.40); WHITE BLOOD COUNT 16.4 10^3/uL (4.0-10.0)
[2022-05-18] MEDS ORDERED: ASPIRIN 81MG ENTERIC TABLET PO SCH (09:00)
== END 2022-05-04 14:23 | DRG 481 ==
LOC: M ED 15:17 → M ED INP 18:22 → ENRESERV 20:56 → M MSPAV 22:09
PROVIDERS: ADMIT Family Medicine; ATTEND Internal Medicine
PROC: 0QS704Z Reposition Left Upper Femur with Internal Fixation Device, Open Approach (ICD-10-PCS; principal; 2022-05-02 11:30)
DX: S72.002A Fracture of unspecified part of neck of left femur, initial encounter for closed fracture (principal); E87.1 Hypo-osmolality and hyponatremia; I10 Essential (primary) hypertension; F03.90 Unspecified dementia, unspecified severity, without behavioral disturbance, psychotic disturbance, mood disturbance, and anxiety; R60.0 Localized edema; D72.829 Elevated white blood cell count, unspecified; E87.6 Hypokalemia; R42 Dizziness and giddiness; E78.5 Hyperlipidemia, unspecified; F32.A Depression, unspecified; Z66 Do not resuscitate; Y92.009 Unspecified place in unspecified non-institutional (private) residence as the place of occurrence of the external cause; Y93.89 Activity, other specified; Y99.8 Other external cause status; W18.30XA Fall on same level, unspecified, initial encounter; Z96.651 Presence of right artificial knee joint; Z79.899 Other long term (current) drug therapy; Z88.8 Allergy status to other drugs, medicaments and biological substances

== ENCOUNTER 2022-05-03 10:49 | Inpatient (IN) | payer MEDICARE ==
[~2022-05-03] VITALS: Ht 165.1 cm; Wt 61.8 kg
[~2022-05-03 10:49] MED LIST changes: +ARIC1TAB PO; +FLUT15.820 NARES; +FURO20TA2 PO; +IBUP1TAB6 PO; +INDA1.253; +INDA1.253 PO; -INDA125TA; +POTA-151 PO; +PROP15DR12 OU; +SIMV-253 PO; +SIMV20TA22 PO; +VENL37.598 PO; +VITATAB73 PO; -ZOCO20TA PO
[2022-05-03] MEDS ORDERED: XARE10TA PO (10:53)
[2022-05-04] MEDS ORDERED: FUROSEMIDE 20 MG TAB PO SCH (09:00)
[2022-05-04] MEDS ORDERED: MIRALAX *UNIT DOSE* 17GM PACKET PO PRN (12:45)
[2022-05-04] MEDS ORDERED: ONDANSETRON 4MG TAB PO PRN (12:45)
[2022-05-04 14:30] VITALS: BP 116/62
[2022-05-04] MEDS: REMEDY PHYTOPLEX Z-GUARD PASTE 113GM TUBE (FROM STOREROOM PRODUCT) TOP SCH ×2 (16:00→20:36)
[2022-05-04] MEDS: RIVAROXABAN 10MG TAB (XARELTO) PO SCH (16:52)
[2022-05-04] MEDS: POLYVINYL ALCOHOL OPHTH SOLN 15 ML(LIQUITEARS) OU SCH ×2 (16:53→20:36)
[2022-05-04] MEDS: ACETAMINOPHEN 500 MG TAB PO SCH ×2 (16:54→20:35)
[2022-05-04 20:00] VITALS: BP 140/77
[2022-05-04] MEDS: POTASSIUM CHLORIDE 10MEQ SR TABLET PO SCH (20:35)
[2022-05-04] MEDS: DONEPEZIL 5 MG TAB PO SCH (20:35)
[2022-05-04] MEDS: SIMVASTATIN 20 MG TAB PO SCH (20:35)
[2022-05-04] MEDS: DOCUSATE SODIUM 100MG CAPSULE PO SCH (20:35)
[2022-05-04] MEDS: VENLAFAXINE **XR** 37.5 MG CAPSULE PO SCH (20:35)
[2022-05-04] MEDS: SENNA 8.6 MG TAB (SENOKOT) PO SCH (20:35)
[2022-05-05 05:30] VITALS: BP 130/60
[2022-05-05 05:55] LABS: BASO % 0.3 % (0.0-1.0); EOS # 0.1 10^3/uL (0.0-0.5); EOS % 1.3 % (0.0-3.0); HEMOGLOBIN 10.7 g/dl (12.0-15.5); LYMPH # 1.6 10^3/uL (1.5-5.0); LYMPH % 15.2 % (24.0-44.0); MEAN CORPUSCULAR HEMOGLOBIN 30.1 pg (27.0-33.0); MEAN CORPUSCULAR HGB CONC 34.5 g/dl (32.0-36.5); MEAN CORPUSCULAR VOLUME 87.3 fl (80.0-96.0); MONO % 24.2 % (2.0-8.0); NEUTROPHILS # 6.1 10^3/uL (1.5-8.5); NEUTROPHILS % 58.1 % (36.0-66.0); PLATELET COUNT, AUTOMATED 175 10^3/uL (150-450); RED BLOOD COUNT 3.55 10^6/uL (4.00-5.40); WHITE BLOOD COUNT 10.6 10^3/uL (4.0-10.0)
[2022-05-05 06:22] LABS: ALBUMIN 2.9 GM/DL (3.2-5.2); ALT/SGPT 18 U/L (12-78); BLOOD UREA NITROGEN 14 MG/DL (7-18); CALCIUM LEVEL 8.7 MG/DL (8.8-10.2); CARBON DIOXIDE LEVEL 26 MEQ/L (21-32); CHLORIDE LEVEL 102 MEQ/L (98-107); CREATININE FOR GFR 0.59 MG/DL (0.55-1.30); GLOMERULAR FILTRATION RATE > 60.0 (>32); GLUCOSE, FASTING 91 MG/DL (70-100); MONO # 2.6 10^3/uL (0.0-0.8); POTASSIUM SERUM 4.6 MEQ/L (3.5-5.1); SODIUM LEVEL 131 MEQ/L (136-145); TOTAL PROTEIN 5.5 GM/DL (6.4-8.2)
[2022-05-05] MEDS: POTASSIUM CHLORIDE 10MEQ SR TABLET PO SCH ×2 (08:28→20:30)
[2022-05-05] MEDS: DOCUSATE SODIUM 100MG CAPSULE PO SCH ×2 (08:28→20:29)
[2022-05-05] MEDS: ACETAMINOPHEN 500 MG TAB PO SCH ×3 (08:28→20:30)
[2022-05-05] MEDS: POLYVINYL ALCOHOL OPHTH SOLN 15 ML(LIQUITEARS) OU SCH ×3 (08:29→20:31)
[2022-05-05] MEDS: VENLAFAXINE **XR** 37.5 MG CAPSULE PO SCH ×2 (08:29→20:28)
[2022-05-05] MEDS: FLUTICASONE PROP 0.05% NASAL SPRAY 16 GM (FLONASE) NARES SCH (08:29)
[2022-05-05] MEDS: VITAMIN B COMPLEX/VIT C CAP PO SCH (08:29)
[2022-05-05] MEDS: OMEPRAZOLE 20MG CAP PO SCH (08:29)
[2022-05-05] MEDS: REMEDY PHYTOPLEX Z-GUARD PASTE 113GM TUBE (FROM STOREROOM PRODUCT) TOP SCH ×3 (08:30→20:32)
[2022-05-05] MEDS: FUROSEMIDE 20 MG TAB PO SCH (11:58)
[2022-05-05] MEDS: CEFDINIR 300 MG CAP (OMNICEF) PO SCH ×2 (13:28→20:28)
[2022-05-05] MEDS: LACTOBACILLUS ACIDOPHILUS CAP (BACID) PO SCH ×3 (13:28→20:29)
[2022-05-05 14:00] VITALS: BP 139/68
[2022-05-05] MEDS: RIVAROXABAN 10MG TAB (XARELTO) PO SCH (17:46)
[2022-05-05 20:00] VITALS: BP 96/52
[2022-05-05] MEDS: SIMVASTATIN 20 MG TAB PO SCH (20:28)
[2022-05-05] MEDS: SENNA 8.6 MG TAB (SENOKOT) PO SCH (20:29)
[2022-05-05] MEDS: RAMELTEON 8 MG TAB (ROZEREM) PO PRN (20:29)
[2022-05-05] MEDS: DONEPEZIL 5 MG TAB PO SCH (20:29)
[2022-05-06 06:00] VITALS: BP 154/88
[2022-05-06 07:22] LABS: BASO % 0.3 % (0.0-1.0); EOS # 0.1 10^3/uL (0.0-0.5); HEMATOCRIT 33.6 % (36.0-47.0); HEMOGLOBIN 11.6 g/dl (12.0-15.5); LYMPH # 1.8 10^3/uL (1.5-5.0); LYMPH % 17.3 % (24.0-44.0); MEAN CORPUSCULAR HEMOGLOBIN 30.4 pg (27.0-33.0); MEAN CORPUSCULAR HGB CONC 34.5 g/dl (32.0-36.5); MONO % 23.3 % (2.0-8.0); NEUTROPHILS # 5.7 10^3/uL (1.5-8.5); NEUTROPHILS % 56.5 % (36.0-66.0); PLATELET COUNT, AUTOMATED 232 10^3/uL (150-450); RED BLOOD COUNT 3.82 10^6/uL (4.00-5.40); WHITE BLOOD COUNT 10.2 10^3/uL (4.0-10.0)
[2022-05-06 07:51] LABS: BLOOD UREA NITROGEN 15 MG/DL (7-18); CARBON DIOXIDE LEVEL 25 MEQ/L (21-32); CHLORIDE LEVEL 99 MEQ/L (98-107); CREATININE FOR GFR 0.73 MG/DL (0.55-1.30); GLOMERULAR FILTRATION RATE > 60.0 (>32); GLUCOSE, FASTING 123 MG/DL (70-100); POTASSIUM SERUM 4.9 MEQ/L (3.5-5.1); SODIUM LEVEL 128 MEQ/L (136-145)
[2022-05-06 08:12] LABS: MONO # 2.4 10^3/uL (0.0-0.8)
[2022-05-06] MEDS: CEFDINIR 300 MG CAP (OMNICEF) PO SCH ×2 (09:40→20:42)
[2022-05-06] MEDS: OMEPRAZOLE 20MG CAP PO SCH (09:40)
[2022-05-06] MEDS: FLUTICASONE PROP 0.05% NASAL SPRAY 16 GM (FLONASE) NARES SCH (09:40)
[2022-05-06] MEDS: LACTOBACILLUS ACIDOPHILUS CAP (BACID) PO SCH ×4 (09:40→20:42)
[2022-05-06] MEDS: VITAMIN B COMPLEX/VIT C CAP PO SCH (09:41)
[2022-05-06] MEDS: DOCUSATE SODIUM 100MG CAPSULE PO SCH ×2 (09:41→20:42)
[2022-05-06] MEDS: VENLAFAXINE **XR** 37.5 MG CAPSULE PO SCH ×2 (09:41→20:44)
[2022-05-06] MEDS: POTASSIUM CHLORIDE 10MEQ SR TABLET PO SCH ×2 (09:41→20:42)
[2022-05-06] MEDS: POLYVINYL ALCOHOL OPHTH SOLN 15 ML(LIQUITEARS) OU SCH ×3 (09:42→20:43)
[2022-05-06] MEDS: REMEDY PHYTOPLEX Z-GUARD PASTE 113GM TUBE (FROM STOREROOM PRODUCT) TOP SCH ×3 (09:42→20:44)
[2022-05-06] MEDS: ACETAMINOPHEN 500 MG TAB PO SCH ×3 (09:42→20:41)
[2022-05-06] MEDS: FUROSEMIDE 20 MG TAB PO SCH (12:35)
[2022-05-06 15:00] VITALS: BP 139/67
[2022-05-06] MEDS: RIVAROXABAN 10MG TAB (XARELTO) PO SCH (17:02)
[2022-05-06 19:37] VITALS: BP 122/62
[2022-05-06] MEDS: DONEPEZIL 5 MG TAB PO SCH (20:40)
[2022-05-06] MEDS: SIMVASTATIN 20 MG TAB PO SCH (20:42)
[2022-05-06] MEDS: SENNA 8.6 MG TAB (SENOKOT) PO SCH (20:42)
[2022-05-07 05:59] VITALS: BP 130/70
[2022-05-07] MEDS: DOCUSATE SODIUM 100MG CAPSULE PO SCH ×2 (09:00→20:55)
[2022-05-07] MEDS: LACTOBACILLUS ACIDOPHILUS CAP (BACID) PO SCH ×4 (09:09→20:55)
[2022-05-07] MEDS: VENLAFAXINE **XR** 37.5 MG CAPSULE PO SCH ×2 (09:09→20:56)
[2022-05-07] MEDS: POTASSIUM CHLORIDE 10MEQ SR TABLET PO SCH ×2 (09:09→20:55)
[2022-05-07] MEDS: VITAMIN B COMPLEX/VIT C CAP PO SCH (09:09)
[2022-05-07] MEDS: OMEPRAZOLE 20MG CAP PO SCH (09:09)
[2022-05-07] MEDS: CEFDINIR 300 MG CAP (OMNICEF) PO SCH ×2 (09:09→20:55)
[2022-05-07] MEDS: FLUTICASONE PROP 0.05% NASAL SPRAY 16 GM (FLONASE) NARES SCH (09:10)
[2022-05-07] MEDS: ACETAMINOPHEN 500 MG TAB PO SCH ×3 (09:10→20:57)
[2022-05-07] MEDS: POLYVINYL ALCOHOL OPHTH SOLN 15 ML(LIQUITEARS) OU SCH ×3 (09:10→20:58)
[2022-05-07] MEDS: REMEDY PHYTOPLEX Z-GUARD PASTE 113GM TUBE (FROM STOREROOM PRODUCT) TOP SCH ×3 (09:10→20:58)
[2022-05-07] MEDS: FUROSEMIDE 20 MG TAB PO SCH (12:02)
[2022-05-07 14:00] VITALS: BP 125/96
[2022-05-07] MEDS: RIVAROXABAN 10MG TAB (XARELTO) PO SCH (17:23)
[2022-05-07 19:41] VITALS: BP 130/60
[2022-05-07] MEDS: RAMELTEON 8 MG TAB (ROZEREM) PO PRN (20:54)
[2022-05-07] MEDS: SIMVASTATIN 20 MG TAB PO SCH (20:55)
[2022-05-07] MEDS: SENNA 8.6 MG TAB (SENOKOT) PO SCH (20:55)
[2022-05-07] MEDS: DONEPEZIL 5 MG TAB PO SCH (20:55)
[2022-05-08] MEDS: IBUPROFEN 600MG TAB PO PRN ×3 (04:29→22:35)
[2022-05-08 06:14] VITALS: BP 125/66
[2022-05-08] MEDS: OMEPRAZOLE 20MG CAP PO SCH (07:26)
[2022-05-08] MEDS: CEFDINIR 300 MG CAP (OMNICEF) PO SCH ×2 (07:26→20:36)
[2022-05-08] MEDS: VENLAFAXINE **XR** 37.5 MG CAPSULE PO SCH ×2 (07:26→20:36)
[2022-05-08] MEDS: LACTOBACILLUS ACIDOPHILUS CAP (BACID) PO SCH ×4 (07:26→20:37)
[2022-05-08] MEDS: VITAMIN B COMPLEX/VIT C CAP PO SCH (07:27)
[2022-05-08] MEDS: POTASSIUM CHLORIDE 10MEQ SR TABLET PO SCH ×2 (07:27→20:36)
[2022-05-08] MEDS: ACETAMINOPHEN 500 MG TAB PO SCH ×3 (07:30→20:35)
[2022-05-08] MEDS: POLYVINYL ALCOHOL OPHTH SOLN 15 ML(LIQUITEARS) OU SCH ×3 (07:30→20:38)
[2022-05-08] MEDS: REMEDY PHYTOPLEX Z-GUARD PASTE 113GM TUBE (FROM STOREROOM PRODUCT) TOP SCH ×3 (07:31→20:37)
[2022-05-08] MEDS: DOCUSATE SODIUM 100MG CAPSULE PO SCH ×2 (07:31→20:36)
[2022-05-08] MEDS: FLUTICASONE PROP 0.05% NASAL SPRAY 16 GM (FLONASE) NARES SCH (07:31)
[2022-05-08] MEDS: FUROSEMIDE 20 MG TAB PO SCH (11:49)
[2022-05-08 14:00] VITALS: BP 132/62
[2022-05-08] MEDS: RIVAROXABAN 10MG TAB (XARELTO) PO SCH (18:10)
[2022-05-08 20:08] VITALS: BP 146/66
[2022-05-08] MEDS: RAMELTEON 8 MG TAB (ROZEREM) PO PRN (20:35)
[2022-05-08] MEDS: SIMVASTATIN 20 MG TAB PO SCH (20:37)
[2022-05-08] MEDS: DONEPEZIL 5 MG TAB PO SCH (20:37)
[2022-05-08] MEDS: SENNA 8.6 MG TAB (SENOKOT) PO SCH (20:37)
[2022-05-09 05:49] VITALS: BP 156/72
[2022-05-09 06:54] LABS: BASO % 0.2 % (0.0-1.0); EOS # 0.1 10^3/uL (0.0-0.5); EOS % 0.8 % (0.0-3.0); HEMATOCRIT 32.9 % (36.0-47.0); HEMOGLOBIN 11.1 g/dl (12.0-15.5); LYMPH # 1.8 10^3/uL (1.5-5.0); LYMPH % 16.1 % (24.0-44.0); MEAN CORPUSCULAR HEMOGLOBIN 30.5 pg (27.0-33.0); MEAN CORPUSCULAR HGB CONC 33.7 g/dl (32.0-36.5); MEAN CORPUSCULAR VOLUME 90.4 fl (80.0-96.0); MONO % 23.4 % (2.0-8.0); NEUTROPHILS # 6.4 10^3/uL (1.5-8.5); NEUTROPHILS % 56.7 % (36.0-66.0); PLATELET COUNT, AUTOMATED 287 10^3/uL (150-450); RED BLOOD COUNT 3.64 10^6/uL (4.00-5.40); WHITE BLOOD COUNT 11.2 10^3/uL (4.0-10.0)
[2022-05-09 07:17] LABS: BLOOD UREA NITROGEN 10 MG/DL (7-18); CALCIUM LEVEL 9.2 MG/DL (8.8-10.2); CARBON DIOXIDE LEVEL 26 MEQ/L (21-32); CHLORIDE LEVEL 100 MEQ/L (98-107); CREATININE FOR GFR 0.71 MG/DL (0.55-1.30); GLOMERULAR FILTRATION RATE > 60.0 (>32); GLUCOSE, FASTING 95 MG/DL (70-100); POTASSIUM SERUM 4.7 MEQ/L (3.5-5.1); SODIUM LEVEL 131 MEQ/L (136-145)
[2022-05-09 07:29] LABS: MONO # 2.6 10^3/uL (0.0-0.8)
[2022-05-09] MEDS: LACTOBACILLUS ACIDOPHILUS CAP (BACID) PO SCH ×5 (08:00→19:58)
[2022-05-09] MEDS: FLUTICASONE PROP 0.05% NASAL SPRAY 16 GM (FLONASE) NARES SCH (09:00)
[2022-05-09] MEDS: POLYVINYL ALCOHOL OPHTH SOLN 15 ML(LIQUITEARS) OU SCH ×3 (09:00→19:59)
[2022-05-09] MEDS: ACETAMINOPHEN 500 MG TAB PO SCH ×4 (09:00→19:58)
[2022-05-09] MEDS: DOCUSATE SODIUM 100MG CAPSULE PO SCH ×2 (09:00→19:54)
[2022-05-09] MEDS: POTASSIUM CHLORIDE 10MEQ SR TABLET PO SCH ×2 (09:53→20:00)
[2022-05-09] MEDS: VITAMIN B COMPLEX/VIT C CAP PO SCH (09:54)
[2022-05-09] MEDS: OMEPRAZOLE 20MG CAP PO SCH (09:55)
[2022-05-09] MEDS: VENLAFAXINE **XR** 37.5 MG CAPSULE PO SCH ×2 (09:55→19:03)
[2022-05-09] MEDS: REMEDY PHYTOPLEX Z-GUARD PASTE 113GM TUBE (FROM STOREROOM PRODUCT) TOP SCH ×3 (10:10→19:59)
[2022-05-09] MEDS: FUROSEMIDE 20 MG TAB PO SCH (12:52)
[2022-05-09 14:00] VITALS: BP 147/70
[2022-05-09] MEDS: RIVAROXABAN 10MG TAB (XARELTO) PO SCH (17:59)
[2022-05-09] MEDS: RAMELTEON 8 MG TAB (ROZEREM) PO SCH (19:03)
[2022-05-09] MEDS: SENNA 8.6 MG TAB (SENOKOT) PO SCH (19:54)
[2022-05-09] MEDS: DONEPEZIL 5 MG TAB PO SCH (19:58)
[2022-05-09] MEDS: SIMVASTATIN 20 MG TAB PO SCH (19:58)
[2022-05-09 20:00] VITALS: BP 157/74
[2022-05-10 06:00] VITALS: BP 145/69
[2022-05-10] MEDS: DOCUSATE SODIUM 100MG CAPSULE PO SCH ×2 (08:05→20:05)
[2022-05-10] MEDS: REMEDY PHYTOPLEX Z-GUARD PASTE 113GM TUBE (FROM STOREROOM PRODUCT) TOP SCH ×3 (09:00→20:06)
[2022-05-10] MEDS: OMEPRAZOLE 20MG CAP PO SCH (09:14)
[2022-05-10] MEDS: VITAMIN B COMPLEX/VIT C CAP PO SCH (09:15)
[2022-05-10] MEDS: LACTOBACILLUS ACIDOPHILUS CAP (BACID) PO SCH ×4 (09:15→20:05)
[2022-05-10] MEDS: POTASSIUM CHLORIDE 10MEQ SR TABLET PO SCH ×2 (09:15→20:05)
[2022-05-10] MEDS: ACETAMINOPHEN 500 MG TAB PO SCH ×3 (09:15→20:06)
[2022-05-10] MEDS: FLUTICASONE PROP 0.05% NASAL SPRAY 16 GM (FLONASE) NARES SCH (09:16)
[2022-05-10] MEDS: VENLAFAXINE **XR** 37.5 MG CAPSULE PO SCH ×2 (09:16→20:05)
[2022-05-10] MEDS: POLYVINYL ALCOHOL OPHTH SOLN 15 ML(LIQUITEARS) OU SCH ×3 (09:16→20:06)
[2022-05-10 09:18] LABS: BASO % 0.2 % (0.0-1.0); EOS # 0.1 10^3/uL (0.0-0.5); EOS % 0.6 % (0.0-3.0); HEMATOCRIT 31.9 % (36.0-47.0); HEMOGLOBIN 11.1 g/dl (12.0-15.5); LYMPH # 1.5 10^3/uL (1.5-5.0); LYMPH % 12.1 % (24.0-44.0); MEAN CORPUSCULAR HGB CONC 34.8 g/dl (32.0-36.5); MEAN CORPUSCULAR VOLUME 89.1 fl (80.0-96.0); MONO % 24.9 % (2.0-8.0); NEUTROPHILS # 7.4 10^3/uL (1.5-8.5); NEUTROPHILS % 60.1 % (36.0-66.0); PLATELET COUNT, AUTOMATED 332 10^3/uL (150-450); RED BLOOD COUNT 3.58 10^6/uL (4.00-5.40); WHITE BLOOD COUNT 12.4 10^3/uL (4.0-10.0)
[2022-05-10 09:36] LABS: BLOOD UREA NITROGEN 9 MG/DL (7-18); CALCIUM LEVEL 9.2 MG/DL (8.8-10.2); CARBON DIOXIDE LEVEL 26 MEQ/L (21-32); CHLORIDE LEVEL 102 MEQ/L (98-107); CREATININE FOR GFR 0.76 MG/DL (0.55-1.30); GLOMERULAR FILTRATION RATE > 60.0 (>32); GLUCOSE, FASTING 101 MG/DL (70-100); POTASSIUM SERUM 4.6 MEQ/L (3.5-5.1); SODIUM LEVEL 132 MEQ/L (136-145)
[2022-05-10 09:44] LABS: MONO # 3.1 10^3/uL (0.0-0.8)
[2022-05-10 12:38] VITALS: BP 140/87
[2022-05-10] MEDS: FUROSEMIDE 20 MG TAB PO SCH (12:40)
[2022-05-10 14:00] VITALS: BP 125/64
[2022-05-10] MEDS: RIVAROXABAN 10MG TAB (XARELTO) PO SCH (17:28)
[2022-05-10 20:00] VITALS: BP 131/60
[2022-05-10] MEDS: RAMELTEON 8 MG TAB (ROZEREM) PO SCH (20:05)
[2022-05-10] MEDS: DONEPEZIL 5 MG TAB PO SCH (20:05)
[2022-05-10] MEDS: SIMVASTATIN 20 MG TAB PO SCH (20:05)
[2022-05-10] MEDS: SENNA 8.6 MG TAB (SENOKOT) PO SCH (20:05)
[2022-05-11 06:00] VITALS: BP 160/82
[2022-05-11 06:39] LABS: BASO % 0.2 % (0.0-1.0); EOS # 0.1 10^3/uL (0.0-0.5); EOS % 0.8 % (0.0-3.0); HEMATOCRIT 29.4 % (36.0-47.0); HEMOGLOBIN 10.3 g/dl (12.0-15.5); LYMPH # 2.1 10^3/uL (1.5-5.0); LYMPH % 20.3 % (24.0-44.0); MEAN CORPUSCULAR VOLUME 88.6 fl (80.0-96.0); MONO % 26.4 % (2.0-8.0); NEUTROPHILS # 5.2 10^3/uL (1.5-8.5); NEUTROPHILS % 50.3 % (36.0-66.0); PLATELET COUNT, AUTOMATED 296 10^3/uL (150-450); RED BLOOD COUNT 3.32 10^6/uL (4.00-5.40); WHITE BLOOD COUNT 10.3 10^3/uL (4.0-10.0)
[2022-05-11 06:49] LABS: MONO # 2.7 10^3/uL (0.0-0.8)
[2022-05-11 07:02] LABS: BLOOD UREA NITROGEN 10 MG/DL (7-18); CALCIUM LEVEL 8.9 MG/DL (8.8-10.2); CARBON DIOXIDE LEVEL 26 MEQ/L (21-32); CHLORIDE LEVEL 100 MEQ/L (98-107); GLOMERULAR FILTRATION RATE > 60.0 (>32); GLUCOSE, FASTING 103 MG/DL (70-100); POTASSIUM SERUM 3.7 MEQ/L (3.5-5.1); SODIUM LEVEL 131 MEQ/L (136-145)
[2022-05-11] MEDS: ACETAMINOPHEN 500 MG TAB PO SCH ×3 (08:26→20:11)
[2022-05-11] MEDS: OMEPRAZOLE 20MG CAP PO SCH (08:26)
[2022-05-11] MEDS: LACTOBACILLUS ACIDOPHILUS CAP (BACID) PO SCH ×4 (08:27→20:10)
[2022-05-11] MEDS: POLYVINYL ALCOHOL OPHTH SOLN 15 ML(LIQUITEARS) OU SCH ×4 (08:27→21:00)
[2022-05-11] MEDS: FLUTICASONE PROP 0.05% NASAL SPRAY 16 GM (FLONASE) NARES SCH (08:27)
[2022-05-11] MEDS: REMEDY PHYTOPLEX Z-GUARD PASTE 113GM TUBE (FROM STOREROOM PRODUCT) TOP SCH ×3 (08:27→20:12)
[2022-05-11] MEDS: VENLAFAXINE **XR** 37.5 MG CAPSULE PO SCH ×2 (08:27→20:11)
[2022-05-11] MEDS: VITAMIN B COMPLEX/VIT C CAP PO SCH (08:27)
[2022-05-11] MEDS: DOCUSATE SODIUM 100MG CAPSULE PO SCH ×2 (08:27→20:10)
[2022-05-11] MEDS: POTASSIUM CHLORIDE 10MEQ SR TABLET PO SCH ×2 (08:27→20:11)
[2022-05-11] MEDS: FUROSEMIDE 20 MG TAB PO SCH (11:57)
[2022-05-11 14:00] VITALS: BP 130/68
[2022-05-11] MEDS: RIVAROXABAN 10MG TAB (XARELTO) PO SCH (17:14)
[2022-05-11 19:55] VITALS: BP 144/66
[2022-05-11] MEDS: RAMELTEON 8 MG TAB (ROZEREM) PO SCH (20:10)
[2022-05-11] MEDS: SENNA 8.6 MG TAB (SENOKOT) PO SCH (20:10)
[2022-05-11] MEDS: SIMVASTATIN 20 MG TAB PO SCH (20:12)
[2022-05-11] MEDS: DONEPEZIL 5 MG TAB PO SCH (20:12)
[2022-05-12 05:41] VITALS: BP 141/67
[2022-05-12] MEDS: LACTOBACILLUS ACIDOPHILUS CAP (BACID) PO SCH ×2 (08:00→12:15)
[2022-05-12] MEDS: ACETAMINOPHEN 500 MG TAB PO SCH ×2 (08:44→10:27)
[2022-05-12] MEDS: VITAMIN B COMPLEX/VIT C CAP PO SCH (08:44)
[2022-05-12] MEDS: POTASSIUM CHLORIDE 10MEQ SR TABLET PO SCH (08:44)
[2022-05-12] MEDS: FLUTICASONE PROP 0.05% NASAL SPRAY 16 GM (FLONASE) NARES SCH (08:45)
[2022-05-12] MEDS: REMEDY PHYTOPLEX Z-GUARD PASTE 113GM TUBE (FROM STOREROOM PRODUCT) TOP SCH ×3 (08:45→19:58)
[2022-05-12] MEDS: OMEPRAZOLE 20MG CAP PO SCH (08:45)
[2022-05-12] MEDS: DOCUSATE SODIUM 100MG CAPSULE PO SCH ×2 (08:45→19:59)
[2022-05-12] MEDS: VENLAFAXINE **XR** 37.5 MG CAPSULE PO SCH ×2 (08:45→19:48)
[2022-05-12] MEDS: POLYVINYL ALCOHOL OPHTH SOLN 15 ML(LIQUITEARS) OU SCH ×3 (08:45→19:58)
[2022-05-12] MEDS: FUROSEMIDE 20 MG TAB PO SCH (12:14)
[2022-05-12] MEDS: POTASSIUM CHLORIDE 10% LIQ 20 MEQ/15 ML UDC PO SCH ×2 (13:13→19:53)
[2022-05-12 14:00] VITALS: BP 118/62
[2022-05-12] MEDS: RIVAROXABAN 10MG TAB (XARELTO) PO SCH (16:39)
[2022-05-12] MEDS: ACETAMINOPHEN 325 MG/10.15 ML UDC PO SCH ×2 (16:39→19:56)
[2022-05-12] MEDS: DONEPEZIL 5 MG TAB PO SCH (19:48)
[2022-05-12] MEDS: RAMELTEON 8 MG TAB (ROZEREM) PO SCH (19:48)
[2022-05-12] MEDS: SIMVASTATIN 20 MG TAB PO SCH (19:48)
[2022-05-12] MEDS: GABAPENTIN 100 MG CAP PO SCH (19:48)
[2022-05-12 19:59] VITALS: BP 120/72
[2022-05-12] MEDS: SENNA 8.6 MG TAB (SENOKOT) PO SCH (19:59)
[2022-05-13 06:33] VITALS: BP 131/63
[2022-05-13 06:39] LABS: BASO % 0.3 % (0.0-1.0); EOS # 0.1 10^3/uL (0.0-0.5); EOS % 0.7 % (0.0-3.0); HEMATOCRIT 30.9 % (36.0-47.0); HEMOGLOBIN 10.8 g/dl (12.0-15.5); LYMPH % 18.4 % (24.0-44.0); MEAN CORPUSCULAR HEMOGLOBIN 31.2 pg (27.0-33.0); MEAN CORPUSCULAR VOLUME 89.3 fl (80.0-96.0); NEUTROPHILS # 6.1 10^3/uL (1.5-8.5); NEUTROPHILS % 55.2 % (36.0-66.0); PLATELET COUNT, AUTOMATED 343 10^3/uL (150-450); RED BLOOD COUNT 3.46 10^6/uL (4.00-5.40)
[2022-05-13 06:40] LABS: MONO # 2.6 10^3/uL (0.0-0.8)
[2022-05-13 06:52] LABS: BLOOD UREA NITROGEN 11 MG/DL (7-18); CALCIUM LEVEL 9.4 MG/DL (8.8-10.2); CARBON DIOXIDE LEVEL 26 MEQ/L (21-32); CHLORIDE LEVEL 103 MEQ/L (98-107); CREATININE FOR GFR 0.61 MG/DL (0.55-1.30); GLOMERULAR FILTRATION RATE > 60.0 (>32); GLUCOSE, FASTING 99 MG/DL (70-100); SODIUM LEVEL 135 MEQ/L (136-145)
[2022-05-13] MEDS: DOCUSATE SODIUM 100MG CAPSULE PO SCH (08:01)
[2022-05-13] MEDS: POLYVINYL ALCOHOL OPHTH SOLN 15 ML(LIQUITEARS) OU SCH ×3 (08:07→20:06)
[2022-05-13] MEDS: FLUTICASONE PROP 0.05% NASAL SPRAY 16 GM (FLONASE) NARES SCH (08:08)
[2022-05-13] MEDS: REMEDY PHYTOPLEX Z-GUARD PASTE 113GM TUBE (FROM STOREROOM PRODUCT) TOP SCH ×3 (08:08→20:07)
[2022-05-13] MEDS: OMEPRAZOLE 20MG CAP PO SCH (08:41)
[2022-05-13] MEDS: VENLAFAXINE **XR** 37.5 MG CAPSULE PO SCH ×2 (08:42→20:06)
[2022-05-13] MEDS: POTASSIUM CHLORIDE 10% LIQ 20 MEQ/15 ML UDC PO SCH ×2 (08:43→20:06)
[2022-05-13] MEDS: ACETAMINOPHEN 325 MG/10.15 ML UDC PO SCH ×3 (08:44→20:06)
[2022-05-13] MEDS ORDERED: SENNA 8.6 MG TAB (SENOKOT) PO PRN (08:50)
[2022-05-13] MEDS ORDERED: DOCUSATE SODIUM 100MG CAPSULE PO PRN (08:50)
[2022-05-13] MEDS: FUROSEMIDE 20 MG TAB PO SCH (13:04)
[2022-05-13 14:00] VITALS: BP 135/64
[2022-05-13] MEDS: RIVAROXABAN 10MG TAB (XARELTO) PO SCH (18:25)
[2022-05-13 20:00] VITALS: BP 142/64
[2022-05-13] MEDS: RAMELTEON 8 MG TAB (ROZEREM) PO SCH (20:06)
[2022-05-13] MEDS: GABAPENTIN 100 MG CAP PO SCH (20:06)
[2022-05-13] MEDS: DONEPEZIL 5 MG TAB PO SCH (20:06)
[2022-05-13] MEDS: SIMVASTATIN 20 MG TAB PO SCH (20:06)
[2022-05-14 06:00] VITALS: BP 146/67
[2022-05-14] MEDS: VENLAFAXINE **XR** 37.5 MG CAPSULE PO SCH ×2 (07:25→20:03)
[2022-05-14] MEDS: POTASSIUM CHLORIDE 10% LIQ 20 MEQ/15 ML UDC PO SCH ×2 (07:25→20:03)
[2022-05-14] MEDS: OMEPRAZOLE 20MG CAP PO SCH (07:25)
[2022-05-14] MEDS: ACETAMINOPHEN 325 MG/10.15 ML UDC PO SCH ×3 (07:27→20:04)
[2022-05-14] MEDS: FLUTICASONE PROP 0.05% NASAL SPRAY 16 GM (FLONASE) NARES SCH (07:27)
[2022-05-14] MEDS: REMEDY PHYTOPLEX Z-GUARD PASTE 113GM TUBE (FROM STOREROOM PRODUCT) TOP SCH ×3 (07:27→20:03)
[2022-05-14] MEDS: POLYVINYL ALCOHOL OPHTH SOLN 15 ML(LIQUITEARS) OU SCH ×3 (07:27→20:04)
[2022-05-14] MEDS: FUROSEMIDE 20 MG TAB PO SCH (11:49)
[2022-05-14 14:00] VITALS: BP 138/64
[2022-05-14] MEDS: RIVAROXABAN 10MG TAB (XARELTO) PO SCH (18:00)
[2022-05-14 20:00] VITALS: BP 128/59
[2022-05-14] MEDS: SIMVASTATIN 20 MG TAB PO SCH (20:03)
[2022-05-14] MEDS: RAMELTEON 8 MG TAB (ROZEREM) PO SCH (20:03)
[2022-05-14] MEDS: DONEPEZIL 5 MG TAB PO SCH (20:03)
[2022-05-14] MEDS: GABAPENTIN 100 MG CAP PO SCH (20:03)
[2022-05-14] MEDS: oxyCODONE 5MG TAB PO PRN (22:28)
[2022-05-15 06:00] VITALS: BP 141/68
[2022-05-15] MEDS: REMEDY PHYTOPLEX Z-GUARD PASTE 113GM TUBE (FROM STOREROOM PRODUCT) TOP SCH ×3 (08:16→21:08)
[2022-05-15] MEDS: FLUTICASONE PROP 0.05% NASAL SPRAY 16 GM (FLONASE) NARES SCH (08:23)
[2022-05-15] MEDS: VENLAFAXINE **XR** 37.5 MG CAPSULE PO SCH ×2 (08:23→21:06)
[2022-05-15] MEDS: POTASSIUM CHLORIDE 10% LIQ 20 MEQ/15 ML UDC PO SCH ×2 (08:23→21:05)
[2022-05-15] MEDS: ACETAMINOPHEN 325 MG/10.15 ML UDC PO SCH ×3 (08:23→21:05)
[2022-05-15] MEDS: OMEPRAZOLE 20MG CAP PO SCH (08:23)
[2022-05-15] MEDS: POLYVINYL ALCOHOL OPHTH SOLN 15 ML(LIQUITEARS) OU SCH ×3 (08:24→21:07)
[2022-05-15] MEDS: FUROSEMIDE 20 MG TAB PO SCH (11:51)
[2022-05-15] MEDS: oxyCODONE 5MG TAB PO PRN ×2 (13:24→21:08)
[2022-05-15 14:00] VITALS: BP 146/71
[2022-05-15] MEDS: RIVAROXABAN 10MG TAB (XARELTO) PO SCH (17:04)
[2022-05-15] MEDS: GABAPENTIN 100 MG CAP PO SCH (21:06)
[2022-05-15] MEDS: RAMELTEON 8 MG TAB (ROZEREM) PO SCH (21:06)
[2022-05-15] MEDS: SIMVASTATIN 20 MG TAB PO SCH (21:07)
[2022-05-15] MEDS: DONEPEZIL 5 MG TAB PO SCH (21:09)
[2022-05-15 21:15] VITALS: BP 141/67
[2022-05-16 06:24] VITALS: BP 141/60
[2022-05-16 06:40] LABS: BASO % 0.2 % (0.0-1.0); EOS # 0.1 10^3/uL (0.0-0.5); EOS % 0.5 % (0.0-3.0); HEMATOCRIT 30.4 % (36.0-47.0); HEMOGLOBIN 10.1 g/dl (12.0-15.5); LYMPH # 1.4 10^3/uL (1.5-5.0); LYMPH % 12.9 % (24.0-44.0); MEAN CORPUSCULAR HEMOGLOBIN 30.4 pg (27.0-33.0); MEAN CORPUSCULAR HGB CONC 33.2 g/dl (32.0-36.5); MEAN CORPUSCULAR VOLUME 91.6 fl (80.0-96.0); NEUTROPHILS # 6.5 10^3/uL (1.5-8.5); NEUTROPHILS % 61.4 % (36.0-66.0); PLATELET COUNT, AUTOMATED 332 10^3/uL (150-450); RED BLOOD COUNT 3.32 10^6/uL (4.00-5.40); WHITE BLOOD COUNT 10.5 10^3/uL (4.0-10.0)
[2022-05-16 07:00] LABS: BLOOD UREA NITROGEN 11 MG/DL (7-18); CALCIUM LEVEL 9.3 MG/DL (8.8-10.2); CARBON DIOXIDE LEVEL 32 MEQ/L (21-32); CHLORIDE LEVEL 100 MEQ/L (98-107); CREATININE FOR GFR 0.65 MG/DL (0.55-1.30); GLOMERULAR FILTRATION RATE > 60.0 (>32); GLUCOSE, FASTING 98 MG/DL (70-100); POTASSIUM SERUM 3.5 MEQ/L (3.5-5.1); SODIUM LEVEL 135 MEQ/L (136-145)
[2022-05-16 07:54] LABS: MONO # 2.5 10^3/uL (0.0-0.8)
[2022-05-16] MEDS: OMEPRAZOLE 20MG CAP PO SCH (09:00)
[2022-05-16] MEDS: FLUTICASONE PROP 0.05% NASAL SPRAY 16 GM (FLONASE) NARES SCH (09:00)
[2022-05-16] MEDS: POLYVINYL ALCOHOL OPHTH SOLN 15 ML(LIQUITEARS) OU SCH ×3 (09:00→20:50)
[2022-05-16] MEDS: REMEDY PHYTOPLEX Z-GUARD PASTE 113GM TUBE (FROM STOREROOM PRODUCT) TOP SCH ×3 (09:00→20:51)
[2022-05-16] MEDS: VENLAFAXINE **XR** 37.5 MG CAPSULE PO SCH ×2 (09:18→20:45)
[2022-05-16] MEDS: oxyCODONE 5MG TAB PO PRN (09:18)
[2022-05-16] MEDS: ACETAMINOPHEN 325 MG/10.15 ML UDC PO SCH ×3 (09:19→20:48)
[2022-05-16] MEDS: POTASSIUM CHLORIDE 10% LIQ 20 MEQ/15 ML UDC PO SCH ×2 (09:19→21:00)
[2022-05-16] MEDS: FUROSEMIDE 20 MG TAB PO SCH (12:12)
[2022-05-16 14:00] VITALS: BP 138/64
[2022-05-16] MEDS: RIVAROXABAN 10MG TAB (XARELTO) PO SCH (18:54)
[2022-05-16 19:38] VITALS: BP 143/70
[2022-05-16] MEDS: DONEPEZIL 5 MG TAB PO SCH (20:45)
[2022-05-16] MEDS: RAMELTEON 8 MG TAB (ROZEREM) PO SCH (20:46)
[2022-05-16] MEDS: GABAPENTIN 100 MG CAP PO SCH (20:46)
[2022-05-16] MEDS: SIMVASTATIN 20 MG TAB PO SCH (20:50)
[2022-05-17 06:00] VITALS: BP 130/68
[2022-05-17] MEDS: ACETAMINOPHEN 325 MG/10.15 ML UDC PO SCH ×3 (08:22→20:39)
[2022-05-17] MEDS: POTASSIUM CHLORIDE 10% LIQ 20 MEQ/15 ML UDC PO SCH ×2 (08:22→20:39)
[2022-05-17] MEDS: REMEDY PHYTOPLEX Z-GUARD PASTE 113GM TUBE (FROM STOREROOM PRODUCT) TOP SCH ×3 (08:22→20:40)
[2022-05-17] MEDS: POLYVINYL ALCOHOL OPHTH SOLN 15 ML(LIQUITEARS) OU SCH ×3 (08:22→20:40)
[2022-05-17] MEDS: OMEPRAZOLE 20MG CAP PO SCH (08:22)
[2022-05-17] MEDS: VENLAFAXINE **XR** 37.5 MG CAPSULE PO SCH ×2 (08:22→20:39)
[2022-05-17] MEDS: FLUTICASONE PROP 0.05% NASAL SPRAY 16 GM (FLONASE) NARES SCH (08:22)
[2022-05-17] MEDS: FUROSEMIDE 20 MG TAB PO SCH (11:55)
[2022-05-17 14:00] VITALS: BP 139/63
[2022-05-17] MEDS: RIVAROXABAN 10MG TAB (XARELTO) PO SCH (18:36)
[2022-05-17 20:00] VITALS: BP 137/63
[2022-05-17] MEDS: DONEPEZIL 5 MG TAB PO SCH (20:39)
[2022-05-17] MEDS: GABAPENTIN 100 MG CAP PO SCH (20:39)
[2022-05-17] MEDS: SIMVASTATIN 20 MG TAB PO SCH (20:39)
[2022-05-17] MEDS: RAMELTEON 8 MG TAB (ROZEREM) PO SCH (20:39)
[2022-05-18 06:00] VITALS: BP 143/65
[2022-05-18] MEDS: ASPIRIN 81MG ENTERIC TABLET PO SCH (08:42)
[2022-05-18] MEDS: VENLAFAXINE **XR** 37.5 MG CAPSULE PO SCH ×2 (08:42→20:05)
[2022-05-18] MEDS: OMEPRAZOLE 20MG CAP PO SCH (08:43)
[2022-05-18] MEDS: POTASSIUM CHLORIDE 10% LIQ 20 MEQ/15 ML UDC PO SCH ×2 (08:43→20:06)
[2022-05-18] MEDS: ACETAMINOPHEN 325 MG/10.15 ML UDC PO SCH ×3 (08:44→20:06)
[2022-05-18] MEDS: FLUTICASONE PROP 0.05% NASAL SPRAY 16 GM (FLONASE) NARES SCH (08:53)
[2022-05-18] MEDS: POLYVINYL ALCOHOL OPHTH SOLN 15 ML(LIQUITEARS) OU SCH ×3 (08:53→20:06)
[2022-05-18] MEDS: REMEDY PHYTOPLEX Z-GUARD PASTE 113GM TUBE (FROM STOREROOM PRODUCT) TOP SCH ×3 (08:54→20:07)
[2022-05-18 11:39] LABS: BASO % 0.1 % (0.0-1.0); EOS # 0.1 10^3/uL (0.0-0.5); EOS % 0.9 % (0.0-3.0); HEMATOCRIT 32.6 % (36.0-47.0); HEMOGLOBIN 10.6 g/dl (12.0-15.5); LYMPH # 1.4 10^3/uL (1.5-5.0); LYMPH % 16.7 % (24.0-44.0); MEAN CORPUSCULAR HEMOGLOBIN 30.2 pg (27.0-33.0); MEAN CORPUSCULAR HGB CONC 32.5 g/dl (32.0-36.5); MEAN CORPUSCULAR VOLUME 92.9 fl (80.0-96.0); MONO % 25.4 % (2.0-8.0); NEUTROPHILS # 4.5 10^3/uL (1.5-8.5); NEUTROPHILS % 55.9 % (36.0-66.0); PLATELET COUNT, AUTOMATED 366 10^3/uL (150-450); RED BLOOD COUNT 3.51 10^6/uL (4.00-5.40); WHITE BLOOD COUNT 8.1 10^3/uL (4.0-10.0)
[2022-05-18 12:00] VITALS: BP 120/58
[2022-05-18 12:03] LABS: BLOOD UREA NITROGEN 15 MG/DL (7-18); CALCIUM LEVEL 9.6 MG/DL (8.8-10.2); CARBON DIOXIDE LEVEL 31 MEQ/L (21-32); CHLORIDE LEVEL 102 MEQ/L (98-107); CREATININE FOR GFR 0.77 MG/DL (0.55-1.30); GLOMERULAR FILTRATION RATE > 60.0 (>32); GLUCOSE, FASTING 149 MG/DL (70-100); POTASSIUM SERUM 4.2 MEQ/L (3.5-5.1); SODIUM LEVEL 138 MEQ/L (136-145)
[2022-05-18 12:21] LABS: MONO # 2.1 10^3/uL (0.0-0.8)
[2022-05-18] MEDS: FUROSEMIDE 20 MG TAB PO SCH (12:30)
[2022-05-18 14:00] VITALS: BP 124/59
[2022-05-18 20:00] VITALS: BP 152/80
[2022-05-18] MEDS: DONEPEZIL 5 MG TAB PO SCH (20:05)
[2022-05-18] MEDS: SIMVASTATIN 20 MG TAB PO SCH (20:05)
[2022-05-18] MEDS: GABAPENTIN 100 MG CAP PO SCH (20:05)
[2022-05-18] MEDS: RAMELTEON 8 MG TAB (ROZEREM) PO SCH (20:05)
[2022-05-19 06:00] VITALS: BP 152/71
[2022-05-19] MEDS: ASPIRIN 81MG ENTERIC TABLET PO SCH (07:43)
[2022-05-19] MEDS: OMEPRAZOLE 20MG CAP PO SCH (07:43)
[2022-05-19] MEDS: VENLAFAXINE **XR** 37.5 MG CAPSULE PO SCH ×2 (07:43→19:37)
[2022-05-19] MEDS: POTASSIUM CHLORIDE 10% LIQ 20 MEQ/15 ML UDC PO SCH ×2 (07:44→19:38)
[2022-05-19] MEDS: ACETAMINOPHEN 325 MG/10.15 ML UDC PO SCH ×3 (07:44→19:38)
[2022-05-19] MEDS: FLUTICASONE PROP 0.05% NASAL SPRAY 16 GM (FLONASE) NARES SCH (07:45)
[2022-05-19] MEDS: POLYVINYL ALCOHOL OPHTH SOLN 15 ML(LIQUITEARS) OU SCH ×3 (07:45→19:38)
[2022-05-19] MEDS: REMEDY PHYTOPLEX Z-GUARD PASTE 113GM TUBE (FROM STOREROOM PRODUCT) TOP SCH ×3 (07:46→19:39)
[2022-05-19 11:40] VITALS: BP 145/67
[2022-05-19] MEDS: FUROSEMIDE 20 MG TAB PO SCH (11:52)
[2022-05-19 14:00] VITALS: BP 138/65
[2022-05-19] MEDS: SIMVASTATIN 20 MG TAB PO SCH (19:37)
[2022-05-19] MEDS: RAMELTEON 8 MG TAB (ROZEREM) PO SCH (19:37)
[2022-05-19] MEDS: GABAPENTIN 100 MG CAP PO SCH (19:37)
[2022-05-19] MEDS: DONEPEZIL 5 MG TAB PO SCH (19:37)
[2022-05-19 20:00] VITALS: BP 150/70
[2022-05-20 06:00] VITALS: BP 139/67
[2022-05-20] MEDS: ASPIRIN 81MG ENTERIC TABLET PO SCH (08:44)
[2022-05-20] MEDS: FLUTICASONE PROP 0.05% NASAL SPRAY 16 GM (FLONASE) NARES SCH (08:45)
[2022-05-20] MEDS: ACETAMINOPHEN 325 MG/10.15 ML UDC PO SCH ×4 (08:45→19:42)
[2022-05-20] MEDS: POLYVINYL ALCOHOL OPHTH SOLN 15 ML(LIQUITEARS) OU SCH ×3 (08:46→19:40)
[2022-05-20] MEDS: REMEDY PHYTOPLEX Z-GUARD PASTE 113GM TUBE (FROM STOREROOM PRODUCT) TOP SCH ×3 (08:46→19:40)
[2022-05-20] MEDS: POTASSIUM CHLORIDE 10% LIQ 20 MEQ/15 ML UDC PO SCH ×2 (08:46→19:40)
[2022-05-20] MEDS: VENLAFAXINE **XR** 37.5 MG CAPSULE PO SCH ×2 (08:46→19:38)
[2022-05-20] MEDS: OMEPRAZOLE 20MG CAP PO SCH (08:46)
[2022-05-20 12:13] VITALS: BP 138/90
[2022-05-20] MEDS: FUROSEMIDE 20 MG TAB PO SCH (12:14)
[2022-05-20 14:00] VITALS: BP 128/71
[2022-05-20] MEDS: RAMELTEON 8 MG TAB (ROZEREM) PO SCH (19:38)
[2022-05-20] MEDS: SIMVASTATIN 20 MG TAB PO SCH (19:38)
[2022-05-20] MEDS: GABAPENTIN 100 MG CAP PO SCH (19:38)
[2022-05-20] MEDS: DONEPEZIL 5 MG TAB PO SCH (19:38)
[2022-05-20 19:51] VITALS: BP 139/63
[2022-05-21 06:00] VITALS: BP 120/68
[2022-05-21] MEDS: VENLAFAXINE **XR** 37.5 MG CAPSULE PO SCH ×2 (08:59→20:01)
[2022-05-21] MEDS: OMEPRAZOLE 20MG CAP PO SCH (08:59)
[2022-05-21] MEDS: ACETAMINOPHEN 325 MG/10.15 ML UDC PO SCH ×3 (08:59→20:01)
[2022-05-21] MEDS: ASPIRIN 81MG ENTERIC TABLET PO SCH (08:59)
[2022-05-21] MEDS: POLYVINYL ALCOHOL OPHTH SOLN 15 ML(LIQUITEARS) OU SCH ×3 (09:00→20:00)
[2022-05-21] MEDS: POTASSIUM CHLORIDE 10% LIQ 20 MEQ/15 ML UDC PO SCH ×2 (09:00→20:00)
[2022-05-21] MEDS: REMEDY PHYTOPLEX Z-GUARD PASTE 113GM TUBE (FROM STOREROOM PRODUCT) TOP SCH ×3 (09:00→20:02)
[2022-05-21] MEDS: FLUTICASONE PROP 0.05% NASAL SPRAY 16 GM (FLONASE) NARES SCH (09:00)
[2022-05-21] MEDS: FUROSEMIDE 20 MG TAB PO SCH (12:22)
[2022-05-21 14:00] VITALS: BP 129/60
[2022-05-21 19:30] VITALS: BP 132/63
[2022-05-21] MEDS: RAMELTEON 8 MG TAB (ROZEREM) PO SCH (20:01)
[2022-05-21] MEDS: SIMVASTATIN 20 MG TAB PO SCH (20:01)
[2022-05-21] MEDS: GABAPENTIN 100 MG CAP PO SCH (20:01)
[2022-05-21] MEDS: DONEPEZIL 5 MG TAB PO SCH (20:01)
[2022-05-22 06:00] VITALS: BP 122/68
[2022-05-22] MEDS: POTASSIUM CHLORIDE 10% LIQ 20 MEQ/15 ML UDC PO SCH ×2 (08:45→19:35)
[2022-05-22] MEDS: VENLAFAXINE **XR** 37.5 MG CAPSULE PO SCH ×2 (08:45→19:38)
[2022-05-22] MEDS: ACETAMINOPHEN 325 MG/10.15 ML UDC PO SCH ×3 (08:45→19:39)
[2022-05-22] MEDS: ASPIRIN 81MG ENTERIC TABLET PO SCH (08:45)
[2022-05-22] MEDS: OMEPRAZOLE 20MG CAP PO SCH (08:45)
[2022-05-22] MEDS: FLUTICASONE PROP 0.05% NASAL SPRAY 16 GM (FLONASE) NARES SCH (08:46)
[2022-05-22] MEDS: POLYVINYL ALCOHOL OPHTH SOLN 15 ML(LIQUITEARS) OU SCH ×3 (08:46→19:45)
[2022-05-22] MEDS: REMEDY PHYTOPLEX Z-GUARD PASTE 113GM TUBE (FROM STOREROOM PRODUCT) TOP SCH ×3 (08:46→19:46)
[2022-05-22] MEDS: FUROSEMIDE 20 MG TAB PO SCH (11:45)
[2022-05-22] MEDS: IBUPROFEN 600MG TAB PO PRN ×2 (12:47→19:37)
[2022-05-22 14:00] VITALS: BP 156/67
[2022-05-22 19:31] VITALS: BP 162/76
[2022-05-22] MEDS: RAMELTEON 8 MG TAB (ROZEREM) PO SCH (19:35)
[2022-05-22] MEDS: GABAPENTIN 100 MG CAP PO SCH (19:37)
[2022-05-22] MEDS: SIMVASTATIN 20 MG TAB PO SCH (19:38)
[2022-05-22] MEDS: DONEPEZIL 5 MG TAB PO SCH (19:39)
[2022-05-23] MEDS: IBUPROFEN 600MG TAB PO PRN (06:00)
[2022-05-23 06:06] VITALS: BP 162/74
[2022-05-23] MEDS: VENLAFAXINE **XR** 37.5 MG CAPSULE PO SCH ×2 (08:39→20:21)
[2022-05-23] MEDS: ASPIRIN 81MG ENTERIC TABLET PO SCH (08:39)
[2022-05-23] MEDS: POTASSIUM CHLORIDE 10% LIQ 20 MEQ/15 ML UDC PO SCH (08:39)
[2022-05-23] MEDS: POLYVINYL ALCOHOL OPHTH SOLN 15 ML(LIQUITEARS) OU SCH ×3 (08:40→20:21)
[2022-05-23] MEDS: FLUTICASONE PROP 0.05% NASAL SPRAY 16 GM (FLONASE) NARES SCH (08:40)
[2022-05-23] MEDS: OMEPRAZOLE 20MG CAP PO SCH (08:40)
[2022-05-23] MEDS: REMEDY PHYTOPLEX Z-GUARD PASTE 113GM TUBE (FROM STOREROOM PRODUCT) TOP SCH ×3 (08:54→20:22)
[2022-05-23] MEDS: ACETAMINOPHEN 325 MG/10.15 ML UDC PO SCH ×3 (09:00→20:21)
[2022-05-23] MEDS ORDERED: LORazepam 2 MG/ML VIAL IM STA (09:54)
[2022-05-23 09:58] LABS: BASO % 0.2 % (0.0-1.0); EOS # 0.1 10^3/uL (0.0-0.5); EOS % 1.4 % (0.0-3.0); HEMATOCRIT 34.8 % (36.0-47.0); HEMOGLOBIN 11.7 g/dl (12.0-15.5); LYMPH # 1.3 10^3/uL (1.5-5.0); LYMPH % 14.7 % (24.0-44.0); MEAN CORPUSCULAR HEMOGLOBIN 31.1 pg (27.0-33.0); MEAN CORPUSCULAR HGB CONC 33.6 g/dl (32.0-36.5); MEAN CORPUSCULAR VOLUME 92.6 fl (80.0-96.0); MONO % 24.1 % (2.0-8.0); NEUTROPHILS % 58.9 % (36.0-66.0); PLATELET COUNT, AUTOMATED 402 10^3/uL (150-450); RED BLOOD COUNT 3.76 10^6/uL (4.00-5.40); WHITE BLOOD COUNT 8.6 10^3/uL (4.0-10.0)
[2022-05-23 10:22] LABS: MONO # 2.1 10^3/uL (0.0-0.8)
[2022-05-23 10:25] LABS: BLOOD UREA NITROGEN 13 MG/DL (7-18); CALCIUM LEVEL 9.4 MG/DL (8.8-10.2); CARBON DIOXIDE LEVEL 26 MEQ/L (21-32); CHLORIDE LEVEL 103 MEQ/L (98-107); CREATININE FOR GFR 0.79 MG/DL (0.55-1.30); GLOMERULAR FILTRATION RATE > 60.0 (>32); GLUCOSE, FASTING 102 MG/DL (70-100); POTASSIUM SERUM 5.1 MEQ/L (3.5-5.1); SODIUM LEVEL 135 MEQ/L (136-145)
[2022-05-23 14:00] VITALS: BP 151/76
[2022-05-23] MEDS ORDERED: HALOPERIDOL 5MG/ML VIAL (J1630 PER 1) IM PRN (16:55)
[2022-05-23] MEDS: OLANZapine 2.5MG TABLET PO SCH ×2 (17:00→20:21)
[2022-05-23] MEDS: FUROSEMIDE 20 MG TAB PO SCH (17:00)
[2022-05-23 20:00] VITALS: BP 131/64
[2022-05-23] MEDS: DONEPEZIL 5 MG TAB PO SCH (20:21)
[2022-05-23] MEDS: RAMELTEON 8 MG TAB (ROZEREM) PO SCH (20:21)
[2022-05-23] MEDS: SIMVASTATIN 20 MG TAB PO SCH (20:21)
[2022-05-24 06:00] VITALS: BP 126/86
[2022-05-24] MEDS ORDERED: POTASSIUM CHLORIDE 10% LIQ 20 MEQ/15 ML UDC PO SCH (09:00)
[2022-05-24] MEDS: ASPIRIN 81MG ENTERIC TABLET PO SCH (09:02)
[2022-05-24] MEDS: ACETAMINOPHEN 325 MG/10.15 ML UDC PO SCH ×3 (09:02→20:36)
[2022-05-24] MEDS: REMEDY PHYTOPLEX Z-GUARD PASTE 113GM TUBE (FROM STOREROOM PRODUCT) TOP SCH ×3 (09:02→20:37)
[2022-05-24] MEDS: OLANZapine 2.5MG TABLET PO SCH ×2 (09:02→20:36)
[2022-05-24] MEDS: VENLAFAXINE **XR** 37.5 MG CAPSULE PO SCH ×2 (09:02→20:36)
[2022-05-24] MEDS: FLUTICASONE PROP 0.05% NASAL SPRAY 16 GM (FLONASE) NARES SCH (09:03)
[2022-05-24] MEDS: POLYVINYL ALCOHOL OPHTH SOLN 15 ML(LIQUITEARS) OU SCH ×3 (09:03→20:36)
[2022-05-24] MEDS: FUROSEMIDE 20 MG TAB PO SCH (12:04)
[2022-05-24 14:00] VITALS: BP 142/65
[2022-05-24 20:00] VITALS: BP 124/66
[2022-05-24] MEDS: SIMVASTATIN 20 MG TAB PO SCH (20:36)
[2022-05-24] MEDS: RAMELTEON 8 MG TAB (ROZEREM) PO SCH (20:36)
[2022-05-24] MEDS: DONEPEZIL 5 MG TAB PO SCH (20:36)
[2022-05-25 05:30] VITALS: BP 125/61
[2022-05-25] MEDS: OLANZapine 2.5MG TABLET PO SCH (08:30)
[2022-05-25] MEDS: ACETAMINOPHEN 325 MG/10.15 ML UDC PO SCH (08:30)
[2022-05-25] MEDS: POLYVINYL ALCOHOL OPHTH SOLN 15 ML(LIQUITEARS) OU SCH (08:30)
[2022-05-25] MEDS: REMEDY PHYTOPLEX Z-GUARD PASTE 113GM TUBE (FROM STOREROOM PRODUCT) TOP SCH (08:30)
[2022-05-25] MEDS: ASPIRIN 81MG ENTERIC TABLET PO SCH (08:30)
[2022-05-25] MEDS: VENLAFAXINE **XR** 37.5 MG CAPSULE PO SCH (08:30)
[2022-05-25] MEDS: FLUTICASONE PROP 0.05% NASAL SPRAY 16 GM (FLONASE) NARES SCH (08:30)
[2022-05-25] MEDS ORDERED: OLAN2.5T25 PO (09:20)
[2022-05-25] MEDS ORDERED: ACET325S6 PO (09:20)
[2022-05-25] MEDS ORDERED: FURO20TA2 PO (09:20)
[2022-05-25] MEDS ORDERED: HYDR-643 PO (09:20)
[2022-05-25] MEDS ORDERED: RAME8TAB2 PO (09:20)
== END 2022-05-25 10:10 | DRG 560 ==
LOC: UNDOADMIN 05-04 14:30 → M PM&R 05-04 14:30 → UNDOADMIN 05-12 15:23 → M PM&R 05-12 15:23
PROVIDERS: ADMIT Physical Medicine & Rehabilitation; ATTEND Physical Medicine & Rehabilitation
DX: S72.002D Fracture of unspecified part of neck of left femur, subsequent encounter for closed fracture with routine healing (principal); E87.1 Hypo-osmolality and hyponatremia; N39.0 Urinary tract infection, site not specified; I50.9 Heart failure, unspecified; F03.90 Unspecified dementia, unspecified severity, without behavioral disturbance, psychotic disturbance, mood disturbance, and anxiety; I11.0 Hypertensive heart disease with heart failure; R60.9 Edema, unspecified; E78.5 Hyperlipidemia, unspecified; F32.A Depression, unspecified; G25.0 Essential tremor; Z66 Do not resuscitate; K21.9 Gastro-esophageal reflux disease without esophagitis; D72.829 Elevated white blood cell count, unspecified; M19.90 Unspecified osteoarthritis, unspecified site; E87.6 Hypokalemia; F41.9 Anxiety disorder, unspecified; G43.909 Migraine, unspecified, not intractable, without status migrainosus; G47.00 Insomnia, unspecified; Z74.09 Other reduced mobility; Z74.1 Need for assistance with personal care; Z96.651 Presence of right artificial knee joint; Z79.01 Long term (current) use of anticoagulants; Z79.899 Other long term (current) drug therapy; Z88.8 Allergy status to other drugs, medicaments and biological substances